=== PATIENT | female | born 1940 | race Caucasian/White ===

== ENCOUNTER 2016-10-30 10:30 | Inpatient (IN) | payer MEDICARE, OTHER ==
[~2016-10-30] VITALS: Ht 167.6 cm; Wt 78.5 kg
[2016-11-11] MEDS ORDERED: PROP150T PO (09:31)
[2016-11-11] MEDS ORDERED: NEXI40CA PO (09:31)
[2016-11-11] MEDS ORDERED: HUMALOG SQ (09:31)
[2016-11-11] MEDS ORDERED: LIPI40TA PO (09:31)
[2016-11-11] MEDS ORDERED: AMBI10TA PO (09:31)
[2016-11-11] MEDS ORDERED: GLIM4TAB PO (09:31)
[2016-11-11] MEDS ORDERED: PRED5TAB PO (09:31)
[2016-11-11] MEDS ORDERED: LINA2.5T5 PO (09:31)
[2016-11-11] MEDS ORDERED: LEVO25TA4 PO (09:31)
[2016-11-20] MEDS ORDERED: LACTATED RINGER'S 1000 ML IV PRN (07:15)
[2016-11-20] MEDS ORDERED: CHLORHEXIDINE GLUCONATE 2 % 1 PACK (2 CLOTHS) TOPICAL PRN (07:15)
[2016-11-20] MEDS ORDERED: METOPROLOL TARTRATE 25 MG TAB PO PRN (07:15)
[2016-11-20] MEDS ORDERED: INSULIN HUMAN REGULAR 1,000 UNITS/10 ML VIAL SQ PRN (07:15)
[2016-11-20] MEDS ORDERED: SODIUM CHLORID 0.9% 500 ML IV PRN (07:15)
[2016-11-20] MEDS ORDERED: TRANEXAMIC ACID IV SCH ×2 (07:30→13:00)
[2016-11-20] MEDS ORDERED: SODIUM CHLORIDE 0.9% IV SCH ×2 (07:30→13:00)
[2016-11-20] MEDS ORDERED: ROPIVACAINE PERI-ARTICULAR INJECTION. P-ARTICULR SCH ×5 (07:30)
[2016-11-20] MEDS ORDERED: DEXAMETHASONE SOD PHOS 20 MG/5 ML VIAL IV SCH (07:30)
[2016-11-20] MEDS ORDERED: VANCOMYCIN 1000 MG/NS 250 ML (for <70 kg) IV SCH ×2 (07:30)
[2016-11-20] MEDS ORDERED: BUPIVACAINE LIPOSOME PF 1.3% 20 ML VIAL ONE (08:00)
[2016-11-20] MEDS ORDERED: POTA10CA PO (08:42)
[2016-11-20] MEDS ORDERED: SPIR25TA PO (08:42)
[2016-11-20 08:44] VITALS: BP 128/77; PULSE 69; RESP 20; TEMP 98; O2SAT 95
[2016-11-20] MEDS ORDERED: CLINDAMYCIN INJ 900 MG in SODIUM CHLORIDE 0.9% INJ 100 ML IV SCH (09:00)
[2016-11-20] MEDS ORDERED: CLINDAMYCIN PHOS 900 MG/6 ML VIAL ONE (09:05)
[2016-11-20] MEDS ORDERED: SODIUM CHLORIDE 0.9% INJ 100 ML ONE (09:07)
[2016-11-20] MEDS ORDERED: fentaNYL CITRATE 250 MCG/5 ML AMP ONE (09:14)
[2016-11-20] MEDS ORDERED: GENTAMICIN SULFATE 80 MG/2 ML VIAL ONE (09:32)
[2016-11-20] MEDS ORDERED: MIDAZOLAM HCL 2 MG/2 ML VIAL ONE (09:41)
[2016-11-20] MEDS ORDERED: FAMOTIDINE 20 MG/2 ML VIAL ONE (09:41)
[2016-11-20] MEDS ORDERED: ACETAMINOPHEN 1000 MG/100 ML VIAL IV ONE (10:28)
[2016-11-20] MEDS ORDERED: Post-op Orders (for Pharmacy) MISC XX ONE (12:00)
[2016-11-20] MEDS ORDERED: NALOXONE HCL 0.4 MG/ML AMP IV PRN (12:00)
[2016-11-20] MEDS ORDERED: ePHEDrine/NS 25 MG/5 ML SYR IV ONE (12:00)
[2016-11-20] MEDS ORDERED: LACTATED RINGER'S 1000 ML INJ 1,000 ML IV ONE (12:00)
[2016-11-20] MEDS ORDERED: BISACODYL 10 MG SUPP RECTAL PRN (12:00)
[2016-11-20] MEDS ORDERED: SODIUM CHLORIDE 0.9% FLUSH 5 ML FLUSH IVF PRN (12:00)
[2016-11-20] MEDS ORDERED: PROPOFOL 200 MG/20 ML AMP IV ONE (12:00)
[2016-11-20] MEDS ORDERED: MAGNESIUM HYDROXIDE SUSP 30 ML CUP PO PRN (12:00)
[2016-11-20] MEDS ORDERED: PHENYLEPH/NS 1000 MCG/10 ML SYR IV ONE (12:00)
[2016-11-20] MEDS ORDERED: ALUMINUM/MAGNESIUM/SIMETH 30 ML CUP PO PRN (12:00)
[2016-11-20] MEDS ORDERED: ONDANSETRON HCL 4 MG/2 ML VIAL IV PUSH ONE (12:00)
--- NOTE | 2016-11-20 12:03 | PD.OP ---
cc: Shaun Rodriguez MD Operative Report Date of Surgery: November 20, 2016 Preoperative Diagnosis: Right knee severe osteoarthritis Postoperative Diagnosis: Same Procedure: Right total knee arthroplasty Anesthesia: Gen. and adductor canal block Surgeon: Shaun Rodriguez Plier Worker(s): RENA Kulkarni The surgical procedure was assisted by my Advanced Registered Nurse Practitioner. My LEAD NETWORK ENGINEER presence was necessary throughout this case for the manipulation and positioning of the surgical extremity. My LEAD NETWORK ENGINEER was assisting me throughout the duration of this procedure. The skill set of an Advance Registered Nurse Practitioner was medically necessary to complete this procedure. During the surgical case, the surgical scheduler was working at the back table and the Advance Registered Nurse Practitioner was directly assisting me. Operation and Findings: IMPLANTS: DePuy Attune: Patella: size 35. Femur, posterior stabilized size 6. Tibia, rotating platform size 5. Tibial insert, rotating platform, posterior stabilized size 5 mm thickness. ESTIMATED BLOOD LOSS: 100 cc TOURNIQUET TIME: 36 minutes at 250 mmHg pressure. JUSTIFICATION FOR PROCEDURE: The patient has end-stage osteoarthritis to the knee. There is an attached conservative measures pathway form in the chart that describes the nonoperative measures that were undertaken prior to consideration of surgical management. The patient understood the risks and benefits of surgical management. See my office notes for further details PROCEDURE: The patient was brought back to the operative theatre. Adequate anesthesia was obtained. The patient received intravenous vancomycin and clindamycin. The lower extremity was prepped and draped in the usual sterile fashion.The leg was exsanguinated, the tourniquet was raised. A standard anterior incision was performed followed by medial parapatellar arthrotomy was performed. End-stage arthritis was identified of the lateral compartment. Specifically there was a large osteochondral defect encompassing the weightbearing surface of the lateral compartment with significant irregular cartilage edges and deep fissuring down to significant exposed bone. Additionally, there was a very large piece of free floating cartilage within the joint along with a large joint effusion that was noted. Osteotomy of the patella was performed. We drilled holes for the patella. We trialed the patella component. We placed an intramedullary guide into the distal femur. We ultimately resected 14 mm off of the distal femur in 5 degrees of valgus. The remnants of the ACL and PCL were resected. Osteotomy of the proximal tibia was performed, resecting 5 mm off of the medial side. This was done with 3 degrees of posterior slope using an extramedullary guide. The distal end of the guide was placed in the mid aspect of the ankle. The femur was sized, and four chamfer cuts were completed in 3 of external rotation. We then cut the central box in the distal femur to replace the PCL. We resected the remnants of the menisci and removed osteophytes off of the femur and tibia. We then trialed the knee. We punched the tibia for the keel, and then used standard technique to cement in components. Excess cement was removed. We trialed the knee again and the final polyethylene thickness was chosen to provide extension to 0 degrees, and flexion of 140 degrees to gravity. The ligaments were appropriately balanced. Lateral release was necessary to obtain excellent patellofemoral tracking. The tourniquet was released and adequate hemostasis was obtained. An intra- articular injection of a ropivacaine cocktail was injected. The posterior knee was inspected for excess cement, which was removed. The final polyethylene was put into position after thorough irrigation. We then closed deep fascia with a #2 Stratafix followed by skin with 2-0 Vicryl followed by alba. Postop plan is to weight-bear as tolerated. DVT prophylaxis will be performed with SCDs, MARGARITA crandall, early mobilization, and Lovenox followed by aspirin. Shaun Rodriguez MD November 20, 2016 12:03
[2016-11-20] MEDS ORDERED: HYDR-3366 PO (12:05)
[2016-11-20] MEDS ORDERED: ASPI325T PO (12:05)
[2016-11-20] MEDS ORDERED: ENOX40P SQ (12:05)
[2016-11-20] MEDS ORDERED: DO NOT ADM ANY ANTICOAGULANT DRUGS PRN (12:19)
--- NOTE | 2016-11-20 12:21 | HHI.DCPOC ---
Discharge Care Plan Diagnosis: (1) Status post total knee replacement, right (2) Primary localized osteoarthrosis, lower leg Your Health Problems Are: Difficulty with ADL Goals to Promote Your Health * To prevent worsening of your condition and complications * To maintain your health at the optimal level Directions to Meet Your Goals Take your medications as prescribed Follow your dietary instruction Follow activity as directed Keep your appointments as scheduled Take your immunizations and boosters as scheduled If your symptoms worsen call your PCP, if no PCP go to Urgent Care Center or Emergency Room Smoking is Dangerous to Your Health. Avoid second hand smoke Call the 24-hour hour crisis hotline for domestic abuse at Kye Marr November 20, 2016 12:21
--- NOTE | 2016-11-20 12:23 | HHI.FF ---
Face to Face Verification Diagnosis: (1) Primary localized osteoarthrosis, lower leg (2) Status post total knee replacement, right Physical Therapy Gait training, Transfer training, bed to chair Knee: Total knee Right LE Weight Bearing: WB as tolerated Right LE Range of Motion: Active ROM Nursing Nursing: Rafal teaching, Dressing changes Dressing Changes: Daily dressing change I have seen patient Chanell MoellerVon on 11/20/16. My clinical findings support the need for the requested home health care services because: Limited ability to care for self High risk of falls I certify that my clinical findings support that this patient is homebound because: Post-op weakness Unsteady gait/balance Kye Marr November 20, 2016 12:23
[2016-11-20] MEDS ORDERED: WALKER WHEELS/F1 MIS (12:24)
[2016-11-20] MEDS ORDERED: CPMMACHINE (12:24)
[2016-11-20] MEDS ORDERED: COMMODE 3-IN-11 MIS (12:24)
[2016-11-20] MEDS ORDERED: MEPERIDINE HCL 25 MG/ML VIAL ONE (12:26)
[2016-11-20] MEDS ORDERED: *morphine SULFATE 8 MG/ML PERIprocedure ONLY ONE ×2 (12:37→12:49)
--- NOTE | 2016-11-20 12:55 | RADRPT ---
EXAM DATE/TIME: 11/20/2016 12:40 [place] Corrected on: November 20, 2016; [facility] COMPARISON: No previous studies available for comparison. INDICATIONS : Post op total right knee. MEDICAL HISTORY : None. SURGICAL HISTORY : None. ENCOUNTER: Initial ACUITY: 1 day PAIN SCORE: 7/10 LOCATION: Right Knee. FINDINGS: Right total knee arthroplasty is present. Hardware is intact. Alignment is anatomic. Skin alba are present ventrally. CONCLUSION: Satisfactory appearance post right TKA Sebas Luque MD on November 20, 2016 at 12:56 Board Certified Radiologist. This report was verified electronically.
[2016-11-20] MEDS: SODIUM CHLOR 0.9% 1000 ML INJ 1,000 ML IV SCH ×2 (13:00→23:07)
[2016-11-20] MEDS ORDERED: NON-FORMULARY DRUG (Insulin Lispro (Human) Inj (Humalog Inj) 0 UNITS) SQ SCH (13:00)
[2016-11-20] MEDS: SPIRONOLACTONE 25 MG TAB PO SCH ×2 (13:00→18:43)
[2016-11-20 13:47] LABS: BICARBONATE 25.9 MEQ/L (21.0-32.0); POTASSIUM 4.2 MEQ/L (3.5-5.1)
[2016-11-20 14:20] VITALS: BP 117/54; PULSE 70; RESP 18; TEMP 96.3; O2SAT 94
[2016-11-20] MEDS: MORPHINE SULFATE 4 MG/ML INJ IV PUSH PRN ×2 (14:33→20:50)
[2016-11-20] MEDS: PROPAFENONE HCL 150 MG TAB PO SCH ×2 (14:36→22:18)
--- NOTE | 2016-11-20 14:41 | PD.CONS ---
[facility] Service [facility] Hospitalists Consult Requested By Dr. Rodriguez Reason for Consult Medical management Primary Care Physician Daphney Dean M.D. Diagnoses: History of Present Illness This is a pleasant 76-year-old female who was admitted for elective surgery. Patient with significant past medical history paroxysmal A. fib, hypertension, sleep apnea, hypothyroid, type 2 diabetes. Patient has history of arthritis, she underwent right total knee arthroplasty per Dr. Rodriguez. She tolerated procedure well. Patient complaining of right thigh cramping, she is in the process of getting medicated. Indicates she received cardiac clearance from Dr. Morrow last week, had an EKG, she was in sinus rhythm. She denies any recent chest pain, no shortness of breath. Hospital services are requested for medical management. ([facility] [place]) Review of Systems Constitutional: DENIES: Diaphoretic episodes, Fatigue, Fever, Weight gain, Weight loss, Chills, Dizziness, Change in appetite, Night Sweats Endocrine: DENIES: Abnorml menstrual pattern, Heat/cold intolerance, Polydipsia , Polyuria, Polyphagia Eyes: DENIES: Blurred vision, Diplopia, Eye inflammation, Eye pain, Vision loss , Photosensitivity, Double Vision Ears, nose, mouth, throat: DENIES: Tinnitus, Hearing loss, Vertigo, Nasal discharge, Oral lesions, Throat pain, Hoarseness, Ear Pain, Running Nose, Epistaxis, Sinus Pain, Toothache, Odynophagia Respiratory: DENIES: Apneas, Cough, Snoring, Wheezing, Hemoptysis, Sputum production, Shortness of breath Cardiovascular: DENIES: Chest pain, Palpitations, Syncope, Dyspnea on Exertion , PND, Lower Extremity Edema, Orthopnea, Claudication Gastrointestinal: DENIES: Abdominal pain, Black stools, Bloody stools, Constipation, Diarrhea, Nausea, Vomiting, Difficulty Swallowing, Anorexia Genitourinary: DENIES: Abnormal vaginal bleeding, Dysmenorrhea, Dyspareunia, Sexual dysfunction, Urinary frequency, Urinary incontinence, Urgency, Hematuria , Dysuria, Nocturia, Vaginal discharge Musculoskeletal: COMPLAINS OF: Joint pain, DENIES: Muscle aches, Stiffness, Joint Swelling, Back pain, Neck pain Integumentary: DENIES: Abnormal pigmentation, Pruritus, Rash, Nail changes, Breast masses, Breast skin changes, Nipple discharge Hematologic/lymphatic: DENIES: Bruising, Lymphadenopathy Immunologic/allergic: DENIES: Eczema, Urticaria Neurologic: DENIES: Abnormal gait, Headache, Localized weakness, Paresthesias, Seizures, Speech Problems, Tremor, Poor Balance Psychiatric: DENIES: Anxiety, Confusion, Mood changes, Depression, Hallucinations, Agitation, Suicidal Ideation, Homicidal Ideation, Delusions ( [place]) Past Family Social History Past Medical History Hypertension Hypothyroid Hyperlipidemia Type 2 diabetes CAD GERD Degenerative disc disease Paroxysmal A. fib Anxiety Sleep apnea, no longer uses CPAP. Follows up with Dr. Billingsley as outpatient. Past Surgical History Appendectomy Exploratory lap with lysis of adhesions 1989 Repeat elap with lysis of adhesions 2012 EGD and colonoscopy Cardiac catheterization Hysterectomy Cholecystectomy Reported Medications Reported Meds & Active Scripts Active Aspirin 325 Mg Tab 325 Mg PO DAILY Start Aspirin after Lovenox is completed. Lovenox Inj (Enoxaparin Sodium) 40 Mg/0.4 Ml Syr 40 Mg SQ DAILY Start Aspirin after Lovenox is completed. Hillister (Hydrocodone-Acetaminophen) 10-325 Mg Tab 1-2 Tab PO Q4H PRN Reported Potassium Chloride ER (Potassium Chloride) 10 Meq Cap 10 Meq PO BID Spironolactone 25 Mg Tab 25 Mg PO TID Glimepiride 4 Mg Tab 4 Mg PO BIDAC Lipitor (Atorvastatin Calcium) 40 Mg Tab 40 Mg PO HS Nexium (Esomeprazole DR) 40 Mg Capdr 40 Mg PO DAILY Ambien (Zolpidem Tartrate) 10 Mg Tab 10 Mg PO HS PRN Levothyroxine (Levothyroxine Sodium) 25 Mcg Tab 25 Mcg PO DAILY Prednisone 5 Mg Tab 5 Mg PO DAILY Propafenone (Propafenone HCl) 150 Mg Tab 150 Mg PO Q8HR Jentadueto (Linagliptin-Metformin) 2.5-1,000 Mg Tab 1 Tab PO BID Humalog Inj (Insulin Human Lispro) 1,000 Unit/10 Ml Vial 1-9 Units SQ QID Max dose at bedtime:( )units; sugars< 70,(0)units; sugars 150-199,(1)unit; sugars 200-249,(3)units; sugars 250-299,(5)units; sugars 300-349,(7)units; sugars more than 349,(9)units. ([place]ri [place]) Allergies: Coded Allergies: Ants (Verified Allergy, Severe, Anaphylaxis, 11/20/16) Benadryl (Verified Allergy, Severe, Anaphylaxis, 11/20/16) Dextrose (Verified Allergy, Severe, Anaphylaxis, 11/20/16) Iodine (Verified Allergy, Mild, Nausea/Vomiting, 11/20/16) STATES SHE RECENTLY HAD IT AND SHE WAS FINE Penicillin (Verified Allergy, Mild, Hives, 11/20/16) Uncoded Allergies: DIOXILLIN (Allergy, Mild, Hives, 10/01/06) ORAL PAIN MEDS (Allergy, Mild, Hives, 10/01/06) SOME ANITBIOTICS (Allergy, Mild, 10/01/06) Active Ordered Medications Inpatient Medications Acetaminophen/ Hydrocodone Bitart 2 tab 2 tab Q6H PRN PO PAIN SCALE 5 TO 10; Start 11/20/16 at 12:00 Acetaminophen/ Hydrocodone Bitart (Hillister 10-325 Mg) 1 tab Q4H PRN PO PAIN LESS THAN 5 ON SCALE; Start 11/20/16 at 12:00 Al Hydrox/Mg Hydrox/Simethicone (Mag-Al Plus Susp Liq) 30 ml Q6H PRN PO INDIGESTION; Start 11/20/16 at 12:00 Atorvastatin Calcium (Lipitor) 40 mg HS PO ; Start 11/20/16 at 21:00 Bisacodyl (Dulcolax Supp) 10 mg DAILY PRN RECTAL CONSTIPATION; Start 11/20/16 at 12:00 Chlorhexidine Gluconate (Chlorhexidine 2% Cloth) 3 pack CABLE ARMORER PRN TOPICAL SEE LABEL COMMENTS; Start 11/20/16 at 07:15; Stop 11/23/16 at 07:14 Clindamycin Phosphate/Sodium Chloride (Cleocin Inj/NS Inj) 106 ml @ 212 mls/hr Q8H IV ; Start 11/20/16 at 17:00; Stop 11/21/16 at 09:29 Dexamethasone Sodium Phosphate (Decadron Inj) 10 mg ONCE ONCE IV ; Start at 13:00; Stop 11/21/16 at 13:01 Dextrose (D50w (Vial) Inj) 25 ml UNSCH PRN IV PUSH HYPOGLYCEMIA-SEE COMMENTS; Start 11/20/16 at 14:45; Status UNV Docusate Sodium (Colace) 100 mg BID PO ; Start 11/21/16 at 21:00 Enoxaparin Sodium (Lovenox Inj) 40 mg Q24H SQ ; Start 11/21/16 at 11:00; Stop at 11:01 Glimepiride (Amaryl) 4 mg BIDAC PO ; Start 11/20/16 at 16:00 Glucagon (Glucagon Inj) 1 mg UNSCH PRN OTHER HYPOGLYCEMIA-SEE COMMENTS; Start 11/20/16 at 14:45; Status UNV Insulin Aspart (NovoLOG SUPPLEMENTAL SCALE) 1 ACHS SLIDING SCALE SQ ; Start 11/20/16 at 16:00; Status UNV Insulin Human Regular See Protocol Table ... CABLE ARMORER PRN SQ SEE PROTOCOL TABLE ; Start 11/20/16 at 07:15; Stop 11/23/16 at 07:14 IV Flush (NS Flush) 2 ml UNSCH PRN IVF FLUSH AFTER USING IV ACCESS; Start at 12:00 IV Flush 2 ml 2 ml BID IVF ; Start 11/20/16 at 21:00 Lactated Ringer's 1,000 ml @ 30 mls/hr Q24H PRN IV SEE LABEL COMMENTS Last administered on 11/20/16 09:00; Start 11/20/16 at 07:15; Stop 11/23/16 at 07:14 Levothyroxine Sodium (Synthroid) 25 mcg DAILY@06 PO ; Start 11/21/16 at 06:00 Magnesium Hydroxide (Milk Of Magnesia Liq) 30 ml DAILY PRN PO CONSTIPATION; Start 11/20/16 at 12:00 Metoprolol Tartrate (Lopressor) 25 mg CABLE ARMORER PRN PO SEE LABEL COMMENTS; Start 11/20/16 at 07:15; Stop 11/23/16 at 07:14 Miscellaneous Information ALL NURSING DEPARTME... UNSCH PRN .XX SEE LABEL COMMENTS; Start 11/20/16 at 12:19; Stop 11/21/16 at 12:18 Miscellaneous Information (Post-op Orders (for Pharmacy)) STAT ONCE XX ; Start 11/20/16 at 12:00; Stop 11/20/16 at 12:59; Status DC Morphine Sulfate (Morphine Inj) 2 mg Q3H PRN IV PUSH pain greater than 5 Last administered on 11/20/16 14:33; Start 11/20/16 at 12:00 Multivitamins/ Minerals Therapeutic (Theragran M Tab) 1 tab BID PO ; Start at 21:00; Stop 01/20/17 at 20:59 Naloxone HCl (Narcan Inj) 0.4 mg UNSCH PRN IV RESPIRATORY RATE LESS THAN 10; Start 11/20/16 at 12:00 Non-Formulary Medication QID SQ BSM; Start 11/20/16 at 13:00; Status UNV Ondansetron HCl (Zofran Inj) 4 mg Q6H PRN IVP NAUSEA OR VOMITING; Start at 12:00 Pantoprazole Sodium (Protonix) 40 mg DAILY PO ; Start 11/21/16 at 09:00 Patient Own Medication PT OWN MED: JENTADU... BID PO ; Start 11/20/16 at 21:00; Status Future Hold Potassium Chloride (KCl) 10 meq BID PO ; Start 11/20/16 at 21:00 Prednisone (Deltasone) 5 mg DAILY PO ; Start 11/21/16 at 09:00 Propafenone HCl (Rythmol) 150 mg Q8HR PO Last administered on 11/20/16 14:36; Start 11/20/16 at 14:00 Ropivacaine/ Ketorolac Tromethamine/ Epinephrine HCl/ Clonidine/Sodium Chloride (Naropin 0.5% Pf Inj/Toradol Inj/ Adrenalin (1:1000) Inj/ Duraclon Inj/NS Inj) 100 ml @ 200 mls/hr ONCE P-ARTICULR ; Start 11/20/16 at 07:30; Stop 11/21/16 at 07:29 Sodium Chloride (NS 1000 ml Inj) 1,000 ml @ 100 mls/hr Q10H IV Last administered on 11/20/16 13:00; Start 11/20/16 at 13:00 Sodium Chloride (NS 500 ml Inj) 500 ml @ 30 mls/hr [id number] PRN IV SEE LABEL COMMENTS; Start 11/20/16 at 07:15; Stop 11/23/16 at 07:14 Spironolactone (Aldactone) 25 mg TID PO ; Start 11/20/16 at 13:00 Tranexamic Acid 785 mg/Sodium Chloride 107.85 ml @ 200 mls/ hr ONCE IV Last administered on 11/20/16 10:15; Start 11/20/16 at 07:30; Stop 11/21/16 at 07:29 Tranexamic Acid/ Sodium Chloride (Cyklokapron Inj/ NS Inj) 107.85 ml @ 200 mls / hr UNSCH IV Last administered on 11/20/16 13:51; Start 11/20/16 at 13:00; Stop 11/20/16 at 19:00 Vancomycin HCl 1000 mg/Sodium Chloride 250 ml @ 250 mls/hr CABLE ARMORER IV Last administered on 11/20/16 09:15; Start 11/20/16 at 07:30; Stop 11/23/16 at 07:29 Zolpidem Tartrate (Ambien) 10 mg HS PRN PO INSOMNIA; Start 11/20/16 at 12:00 Family History Positive for CAD and diabetes Social History Patient lives alone, no alcohol, tobacco abuse, no substance abuse. ([place]) Physical Exam Vital Signs Vital Signs Date Time Temp Pulse Resp B/P Pulse Ox O2 Delivery O2 Flow Rate FiO2 11/20/16 14:20 96.3 70 18 117/54 94 11/20/16 13:45 97.6 64 16 106/57 95 Nasal Cannula 2 11/20/16 13:30 65 16 105/57 95 Nasal Cannula 2 11/20/16 13:15 65 16 101/58 94 Nasal Cannula 2 11/20/16 13:00 64 20 97/55 98 Nasal Cannula 3 11/20/16 12:45 64 26 106/58 95 Nasal Cannula 3 11/20/16 12:30 68 28 119/69 97 Nasal Cannula 3 11/20/16 12:21 97.6 71 19 118/67 96 Nasal Cannula 3 11/20/16 08:44 98.0 69 20 128/77 95 Physical Exam GENERAL: This is a well-nourished, well-developed patient, in no apparent distress. SKIN: No rashes, ecchymoses or lesions. Cool and dry. HEAD: Atraumatic. Normocephalic. No temporal or scalp tenderness. EYES: Pupils equal round and reactive. Extraocular motions intact. No scleral icterus. No injection or drainage. ENT: Nose without bleeding, purulent drainage or septal hematoma. Throat without erythema, tonsillar hypertrophy or exudate. Uvula midline. Airway patent. NECK: Trachea midline. No JVD or lymphadenopathy. Supple, nontender, no meningeal signs. CARDIOVASCULAR: Regular rate and rhythm without murmurs, gallops, or rubs. RESPIRATORY: Clear to auscultation. Breath sounds equal bilaterally. No wheezes , rales, or rhonchi. GASTROINTESTINAL: Abdomen soft, non-tender, nondistended. No hepato-splenomegaly , or palpable masses. No guarding. MUSCULOSKELETAL: Right leg in splint. Surgical site intact. Able to dorsiflex right foot, intact sensation to the right foot, bilaterally pedal pulses 2+. NEUROLOGICAL: Grossly intact Laboratory Laboratory Tests Test 11/20/16 11/20/16 09:32 13:04 Blood Type O POSITIVE Antibody Screen NEGATIVE Blood Bank Comment Sodium Level 137 Potassium Level 4.2 Chloride Level 101 Carbon Dioxide Level 25.9 Anion Gap 10 Blood Urea Nitrogen 18 Creatinine 0.92 Estimat Glomerular Filtration 60 Rate Random Glucose 300 Calcium Level 8.2 ([place]ri [place]) Result Diagram: 11/20/16 1304 Imaging Last Impressions Knee X-Ray 11/20/16 1152 Signed Impressions: Service Date/Time: Sunday, November 20, 2016 12:40 - CONCLUSION: Satisfactory appearance post right TKA Sebas Luque MD ([facility] [place]) A/P Diagnosis: (1) Status post total knee replacement, right (2) Paroxysmal a-fib (3) CAD (coronary artery disease) (4) HTN (hypertension) (5) Sleep apnea (6) Diabetes 1.5, managed as type 2 Assessment and Plan Thank you for this consultation, we will assist with medical management 76-year-old female with history of osteomyelitis, status post right total knee arthroplasty -Continue with postoperative orthopedic care Continue with pain management Physical therapy Wound care Bowel regimen Lovenox for DVT prophylaxis History of paroxysmal A. fib, currently sinus rhythm Continuous cardiac telemetry -Continue with Rythmol CAD, stable Continue with home medications Sleep apnea, patient no longer uses CPAP due to mask not fitting. Has been stable, follows up with sleep specialist -Monitor Type 2 diabetes -Continue with by mouth hypoglycemic, continue Amaryl Accu-Cheks before meals and at bedtime with insulin therapy Hypertension, stable Continue with home medications Home medications reviewed, already initiated Continue with Lovenox for DVT prophylaxis Continue with Protonix for GI prophylaxis Repeat CBC and BMP in the morning Plan of care has been discussed with the patient, attending and registered nurse. Further management of the patient will be dependent on the hospital course This patient was seen by myself and Dr. Witt, this consultation is written on his behalf ([facility]ri [place]) Assessment and Plan pt is seen & Examined d/w PT d/w Carri malave w above cont current tx will f/u (Jase Witt MD) Problem Qualifiers (1) CAD (coronary artery disease): Qualified Code: I25.10 - Coronary artery disease involving [place] coronary artery of [place] heart without angina pectoris (2) HTN (hypertension): Qualified Code: I10 - Essential hypertension (3) Sleep apnea: Qualified Code: G47.30 - Sleep apnea, unspecified type [facility] [place] November 20, 2016 14:41 Jase Witt MD November 20, 2016 17:00
[2016-11-20] MEDS ORDERED: DEXTROSE 50% IN WATER 50 ML VIAL(D50) IV PUSH PRN ×2 (14:45→17:15)
[2016-11-20] MEDS ORDERED: GLUCAGON 1 MG/ML VIAL OTHER PRN ×2 (14:45→17:15)
[2016-11-20] MEDS ORDERED: INSULIN ASPART SUPPLEMENTAL SCALE SQ SCH (16:00)
[2016-11-20] MEDS: ONDANSETRON HCL 4 MG/2 ML VIAL IVP PRN (16:38)
[2016-11-20] MEDS: GLIMEPIRIDE 4 MG TAB PO SCH (16:38)
[2016-11-20] MEDS ORDERED: INSULIN ASPART 1,000 UNITS/10 ML VIAL SQ ONE (17:45)
[2016-11-20] MEDS: ALPRAZolam 0.25 MG TAB PO PRN (18:43)
[2016-11-20] MEDS: CLINDAMYCIN INJ 900 MG in SODIUM CHLORIDE 0.9% INJ 100 ML IV SCH (18:55)
[2016-11-20 20:07] VITALS: O2SAT 96
[2016-11-20 20:20] VITALS: BP 102/61; PULSE 64; RESP 16; TEMP 96.6; O2SAT 92
[2016-11-20] MEDS: POTASSIUM CHLORIDE 10 MEQ CAP PO SCH (20:48)
[2016-11-20] MEDS: SODIUM CHLORIDE 0.9% FLUSH 5 ML FLUSH IVF SCH (20:49)
[2016-11-20] MEDS: INSULIN ASPART SUPPLEMENTAL SCALE SQ SCH (20:49)
[2016-11-20] MEDS: ATORVASTATIN 40 MG TAB PO SCH (20:49)
[2016-11-20] MEDS ORDERED: LINAGLIPTIN PO SCH (21:00)
[2016-11-20] MEDS ORDERED: METFORMIN PO SCH (21:00)
[2016-11-20] MEDS: ZOLPIDEM TARTRATE 10 MG TAB PO PRN (23:22)
[2016-11-21 00:05] VITALS: BP 100/57; PULSE 65; RESP 16; TEMP 97.8; O2SAT 93
[2016-11-21] MEDS: CLINDAMYCIN INJ 900 MG in SODIUM CHLORIDE 0.9% INJ 100 ML IV SCH ×2 (01:04→08:50)
[2016-11-21 04:05] VITALS: BP 112/62; PULSE 66; RESP 16; TEMP 96.8; O2SAT 93
[2016-11-21] MEDS: ACETAMINOPHEN/HYDROcodone 325 MG/10 MG TAB PO PRN ×3 (04:14→21:30)
[2016-11-21 06:47] LABS: HEMATOCRIT 26.7 % (35.0-46.0); MEAN CELL VOLUME 66.3 FL (80.0-100.0); MEAN CORPUSCULAR HEMOGLOBIN 19.9 PG (27.0-34.0); PLATELET COUNT 301 TH/MM3 (150-450); RED BLOOD COUNT 4.03 MIL/MM3 (4.00-5.30); RED CELL DISTRIBUTION WIDTH 18.5 % (11.6-17.2)
[2016-11-21 06:57] LABS: REVIEW FLAG FINAL
[2016-11-21 07:06] LABS: BICARBONATE 26.7 MEQ/L (21.0-32.0); POTASSIUM 4.3 MEQ/L (3.5-5.1)
[2016-11-21] MEDS: PROPAFENONE HCL 150 MG TAB PO SCH ×3 (07:14→21:29)
[2016-11-21] MEDS: GLIMEPIRIDE 4 MG TAB PO SCH ×2 (07:14→18:06)
[2016-11-21] MEDS: LEVOTHYROXINE SODIUM 25 MCG TAB PO SCH (07:14)
[2016-11-21] MEDS: INSULIN ASPART SUPPLEMENTAL SCALE SQ SCH ×4 (07:15→21:28)
[2016-11-21 08:00] VITALS: BP 101/60; PULSE 66; RESP 16; TEMP 96.4; O2SAT 92
[2016-11-21] MEDS: ONDANSETRON HCL 4 MG/2 ML VIAL IVP PRN (08:51)
[2016-11-21] MEDS: SODIUM CHLORIDE 0.9% FLUSH 5 ML FLUSH IVF SCH ×2 (08:51→21:29)
[2016-11-21] MEDS: predniSONE 5 MG TAB PO SCH (10:46)
[2016-11-21] MEDS: POTASSIUM CHLORIDE 10 MEQ CAP PO SCH ×2 (10:46→21:28)
[2016-11-21] MEDS: SPIRONOLACTONE 25 MG TAB PO SCH ×3 (10:46→20:15)
[2016-11-21] MEDS: PANTOPRAZOLE SOD 40 MG DELAYED RELEASE TAB PO SCH (10:47)
[2016-11-21] MEDS: ALPRAZolam 0.25 MG TAB PO PRN (10:47)
[2016-11-21] MEDS: SODIUM CHLOR 0.9% 1000 ML INJ 1,000 ML IV SCH ×2 (10:48→19:00)
[2016-11-21] MEDS ORDERED: DILT60TA PO (11:36)
--- NOTE | 2016-11-21 11:57 | HHI.PR ---
Subjective Subjective Remarks right knee pain no cp no sob no bm yet no palpitatin no fever sitting up in chair Review of Systems Constitutional Constitutional Remarks 12 point ROS completed, negative except as noted above Vitals/Results Intake & Output 11/20/16 11/20/16 11/21/16 15:00 23:00 07:00 Intake Total 1250 ml 240 ml 120 ml Output Total 1050 ml 600 ml 375 ml Balance 200 ml -360 ml -255 ml Intake Oral 240 ml 120 ml IV Total 150 ml Other 1100 ml Output Urine Total 850 ml 600 ml 375 ml Estimated Blood Loss 200 ml # Bowel Movements 0 0 Vital Signs Vital Signs Date Time Temp Pulse Resp B/P Pulse Ox O2 Delivery O2 Flow Rate FiO2 11/21/16 08:00 96.4 66 16 101/60 92 11/21/16 04:05 96.8 66 16 112/62 93 11/21/16 00:05 97.8 65 16 100/57 93 11/20/16 20:20 96.6 64 16 102/61 92 11/20/16 20:07 96 Nasal Cannula 1.00 11/20/16 14:20 96.3 70 18 117/54 94 11/20/16 13:45 97.6 64 16 106/57 95 Nasal Cannula 2 11/20/16 13:30 65 16 105/57 95 Nasal Cannula 2 11/20/16 13:15 65 16 101/58 94 Nasal Cannula 2 11/20/16 13:00 64 20 97/55 98 Nasal Cannula 3 11/20/16 12:45 64 26 106/58 95 Nasal Cannula 3 11/20/16 12:30 68 28 119/69 97 Nasal Cannula 3 11/20/16 12:21 97.6 71 19 118/67 96 Nasal Cannula 3 CBC/BMP: 11/21/16 0535 11/21/16 0535 Lab Results Laboratory Tests Test 11/20/16 11/21/16 13:04 05:35 Sodium Level 137 MEQ/L 137 MEQ/L Potassium Level 4.2 MEQ/L 4.3 MEQ/L Chloride Level 101 MEQ/L 103 MEQ/L Carbon Dioxide Level 25.9 MEQ/L 26.7 MEQ/L Anion Gap 10 MEQ/L 7 MEQ/L Blood Urea Nitrogen 18 MG/DL 19 MG/DL Creatinine 0.92 MG/DL 0.74 MG/DL Estimat Glomerular Filtration 60 ML/MIN 77 ML/MIN Rate Random Glucose 300 MG/DL 183 MG/DL Calcium Level 8.2 MG/DL 7.8 MG/DL White Blood Count 12.0 TH/MM3 Red Blood Count 4.03 MIL/MM3 Hemoglobin 8.0 GM/DL Hematocrit 26.7 % Mean Corpuscular Volume 66.3 FL Mean Corpuscular Hemoglobin 19.9 PG Mean Corpuscular Hemoglobin 30.0 % Concent Red Cell Distribution Width 18.5 % Platelet Count 301 TH/MM3 Mean Platelet Volume 8.1 FL Physical Exam General General Appearance: Well Developed, Well Nourished, No Acute Distress, Comfortable Eyes Eye Exam: Pupils Equal, Pupils Reactive Ears & Nose Ears & Nose Exam: Nasal Mucosa An[place] Throat Throat Exam: Oral Mucosa An[place] & Moist Neck Neck Exam: Neck Supple, Trachea Midline Pulmonary Resp Exam: Clear Bilaterally, No Distress Cardiology CV Exam: Regular, Normal Sinus Rhythm, Good Perfusion Gastrointestinal/Abdomen GI Exam: Soft, Non-Tender, Bowel Sounds Present, Non-Distended Musculoskeletal MS Remarks Right knee dressing D/I Integumentary Skin Exam: Warm, Dry Extremeties Extremities Exam: No Edema, Pedal Pulses Palpable Neurologic Neuro Exam: Alert, Awake, Oriented, Speech Clear, Clinic Physician Equal VTE Prophylaxis VTE Prophylaxis Meds: Lovenox PUD Prophylasis PUD Prophylaxis: Protonix Assessment/Plan Problem List: (1) Status post total knee replacement, 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 fib, currently sinus rhythm. Stable Continuous cardiac telemetry -Continue with Rythmol, resume Cardizem CAD, stable Continue with home medications Sleep apnea, patient no longer uses CPAP due to mask not fitting. Has been stable, follows up with sleep specialist -Monitor Type 2 diabetes, uncontrolled, on Prednisone -Continue with by mouth hypoglycemic, continue Amaryl Accu-Cheks before meals and at bedtime with insulin therapy Hypertension, stable Continue with home medications Continue with Lovenox for DVT prophylaxis Continue with Protonix for GI prophylaxis Labs in am D/W RN D/W Dr. Witt D/W pt. This patient was seen by myself and Dr. Witt, this note is written on his behalf Problem Qualifiers (1) Sleep apnea: Qualified Code: G47.30 - Sleep apnea, unspecified type (2) HTN (hypertension): Qualified Code: I10 - Essential hypertension (3) CAD (coronary artery disease): Qualified Code: I25.10 - Coronary artery disease involving [place] coronary artery of [place] heart without angina pectoris (4) Anemia: Carri [place] [facility] November 21, 2016 11:57
[2016-11-21 12:00] VITALS: BP 113/56; PULSE 65; RESP 16; TEMP 97.4; O2SAT 94
[2016-11-21] MEDS ORDERED: DILTIAZEM HCL 60 MG TAB PO PRN (12:00)
[2016-11-21] MEDS: ENOXAPARIN SODIUM 40 MG/0.4 ML SYRINGE SQ SCH (12:10)
--- NOTE | 2016-11-21 12:55 | PD.ORT.PN ---
Subjective Post Op Day #: 1 Subjective Remarks The patient is OOB in chair with c/o thigh pain. Patient denies any knee pain. Patient wants to be back in bed to rest. Objective Vitals Vital Signs Date Time Temp Pulse Resp B/P Pulse Ox O2 Delivery O2 Flow Rate FiO2 11/21/16 08:00 96.4 66 16 101/60 92 11/21/16 04:05 96.8 66 16 112/62 93 11/21/16 00:05 97.8 65 16 100/57 93 11/20/16 20:20 96.6 64 16 102/61 92 11/20/16 20:07 96 Nasal Cannula 1.00 11/20/16 14:20 96.3 70 18 117/54 94 11/20/16 13:45 97.6 64 16 106/57 95 Nasal Cannula 2 11/20/16 13:30 65 16 105/57 95 Nasal Cannula 2 11/20/16 13:15 65 16 101/58 94 Nasal Cannula 2 11/20/16 13:00 64 20 97/55 98 Nasal Cannula 3 11/20/16 12:45 64 26 106/58 95 Nasal Cannula 3 I/O 11/20/16 11/20/16 11/20/16 11/21/16 11/21/16 11/21/16 07:00 15:00 23:00 07:00 15:00 23:00 Intake Total 1250 ml 240 ml 120 ml Output Total 1050 ml 600 ml 375 ml Balance 200 ml -360 ml -255 ml Intake Oral 240 ml 120 ml IV Total 150 ml Other 1100 ml Output Urine Total 850 ml 600 ml 375 ml Estimated Blood Loss 200 ml # Bowel Movements 0 0 Result Diagram: 11/21/16 0535 11/21/16 0535 Procedures Right TKA Objective Remarks The patient's dressing is C/D/I. EHL/TA/G intact. 2+ pedal pulse. Minimal swelling. Calf is soft and nontender. + SILT. Assessment & Plan Ortho Post Op Day #: 1 Problem List: Assessment and Plan POD #1: Right TKA 1. WBAT RLE 2. Lovenox for DVT prophylaxis 3. Ice to the right knee PRN 4. Anticipatory discharge to SNF on Friday. Kye Marr November 21, 2016 12:55
[2016-11-21] MEDS ORDERED: DEXAMETHASONE SOD PHOS 20 MG/5 ML VIAL IV ONE (13:00)
[2016-11-21 16:00] VITALS: BP 122/58; PULSE 67; RESP 16; TEMP 97.3; O2SAT 93
[2016-11-21] MEDS: DILTIAZEM HCL 90 MG TAB PO SCH (16:11)
[2016-11-21 20:15] VITALS: BP 152/68; PULSE 68; RESP 17; TEMP 97; O2SAT 95
[2016-11-21] MEDS: MULTIVITAMINS/MINERALS THERAPEUTIC TAB PO SCH (21:28)
[2016-11-21] MEDS: DOCUSATE SODIUM 100 MG CAP PO SCH (21:28)
[2016-11-21] MEDS: ATORVASTATIN 40 MG TAB PO SCH (21:28)
[2016-11-21] MEDS: ZOLPIDEM TARTRATE 10 MG TAB PO PRN (22:14)
[2016-11-22] VITALS (9 sets, daily range): BP systolic 116–148; BP diastolic 56–73; PULSE 60–67; RESP 17–18; TEMP 96.6–98.2; O2SAT 92–95
[2016-11-22] MEDS: ACETAMINOPHEN/HYDROcodone 325 MG/10 MG TAB PO PRN ×4 (01:31→21:18)
[2016-11-22] MEDS: SODIUM CHLOR 0.9% 1000 ML INJ 1,000 ML IV SCH ×3 (05:00→22:40)
[2016-11-22] MEDS: PROPAFENONE HCL 150 MG TAB PO SCH ×3 (05:54→21:19)
[2016-11-22] MEDS: LEVOTHYROXINE SODIUM 25 MCG TAB PO SCH (05:54)
[2016-11-22] MEDS: INSULIN ASPART SUPPLEMENTAL SCALE SQ SCH ×3 (07:33→20:20)
[2016-11-22] MEDS: GLIMEPIRIDE 4 MG TAB PO SCH ×2 (07:33→16:07)
[2016-11-22] MEDS: predniSONE 5 MG TAB PO SCH (07:46)
[2016-11-22] MEDS: PANTOPRAZOLE SOD 40 MG DELAYED RELEASE TAB PO SCH (07:47)
[2016-11-22] MEDS: SPIRONOLACTONE 25 MG TAB PO SCH ×3 (07:47→17:55)
[2016-11-22] MEDS: MULTIVITAMINS/MINERALS THERAPEUTIC TAB PO SCH ×2 (07:47→20:10)
[2016-11-22] MEDS: DOCUSATE SODIUM 100 MG CAP PO SCH ×2 (07:47→20:10)
[2016-11-22] MEDS: POTASSIUM CHLORIDE 10 MEQ CAP PO SCH ×2 (07:48→20:10)
[2016-11-22] MEDS: DILTIAZEM HCL 90 MG TAB PO SCH (07:48)
[2016-11-22 07:50] LABS: HEMATOCRIT 23.9 % (35.0-46.0); MEAN CELL VOLUME 66.1 FL (80.0-100.0); MEAN CORPUSCULAR HEMOGLOBIN 19.9 PG (27.0-34.0); MEAN CORPUSCULAR HGB CONC 30.1 % (32.0-36.0); PLATELET COUNT 269 TH/MM3 (150-450); RED BLOOD COUNT 3.62 MIL/MM3 (4.00-5.30); RED CELL DISTRIBUTION WIDTH 18.9 % (11.6-17.2)
[2016-11-22 08:04] LABS: BICARBONATE 27.5 MEQ/L (21.0-32.0); POTASSIUM 4.8 MEQ/L (3.5-5.1)
[2016-11-22 08:23] LABS: REVIEW FLAG FINAL
[2016-11-22] MEDS ORDERED: SODIUM CHLOR 0.9% 250 ML INJ 250 ML IV ONE (09:00)
[2016-11-22] MEDS ORDERED: FUROSEMIDE 20 MG/2 ML VIAL IV SCH (09:00)
[2016-11-22] MEDS: SODIUM CHLORIDE 0.9% FLUSH 5 ML FLUSH IVF SCH ×2 (09:00→20:10)
[2016-11-22] MEDS: ENOXAPARIN SODIUM 40 MG/0.4 ML SYRINGE SQ SCH (11:45)
--- NOTE | 2016-11-22 12:08 | HHI.PR ---
Subjective Subjective Remarks right thigh pain, feels heavy, "worst pain than knee" c/o dizziness today no cp no sob no fever eating okay Review of Systems Constitutional Constitutional Remarks 12 point ROS completed, negative except as noted above Vitals/Results Intake & Output 11/21/16 11/21/16 11/22/16 15:00 23:00 07:00 Intake Total 240 ml 120 ml Balance 240 ml 120 ml Intake Oral 240 ml 120 ml # Voids 2 2 1 # Bowel Movements 0 0 0 Vital Signs Vital Signs Date Time Temp Pulse Resp B/P Pulse Ox O2 Delivery O2 Flow Rate FiO2 11/22/16 08:00 96.6 60 18 120/64 94 11/22/16 04:20 97.2 65 17 118/64 94 11/22/16 00:15 96.9 63 17 116/61 94 11/21/16 20:15 97.0 68 17 152/68 95 11/21/16 16:00 97.3 67 16 122/58 93 CBC/BMP: 11/22/16 0634 11/22/16 0634 Lab Results Laboratory Tests Test 11/22/16 11/22/16 11/22/16 06:34 08:58 11:27 White Blood Count 11.0 TH/MM3 Red Blood Count 3.62 MIL/MM3 Hemoglobin 7.2 GM/DL Hematocrit 23.9 % Mean Corpuscular Volume 66.1 FL Mean Corpuscular Hemoglobin 19.9 PG Mean Corpuscular Hemoglobin 30.1 % Concent Red Cell Distribution Width 18.9 % Platelet Count 269 TH/MM3 Mean Platelet Volume 8.7 FL Sodium Level 135 MEQ/L Potassium Level 4.8 MEQ/L Chloride Level 102 MEQ/L Carbon Dioxide Level 27.5 MEQ/L Anion Gap 6 MEQ/L Blood Urea Nitrogen 15 MG/DL Creatinine 0.80 MG/DL Estimat Glomerular Filtration 70 ML/MIN Rate Random Glucose 250 MG/DL Calcium Level 8.6 MG/DL Blood Type O POSITIVE O POSITIVE Crossmatch Leukocyte-Reduced Red Blood Cells Blood Bank Comment Physical Exam General General Appearance: Well Developed, Well Nourished, No Acute Distress, Comfortable, Pale Eyes Eye Exam: Pupils Equal, Pupils Reactive Ears & Nose Ears & Nose Exam: Nasal Mucosa [place] Throat Throat Exam: Oral Mucosa [place] & Moist Neck Neck Exam: Neck Supple, Trachea Midline Pulmonary Resp Exam: Clear Bilaterally, No Distress Cardiology CV Exam: Regular, Normal Sinus Rhythm, Good Perfusion Gastrointestinal/Abdomen GI Exam: Soft, Non-Tender, Bowel Sounds Present, Non-Distended Musculoskeletal MS Remarks Right knee dressing D/I Integumentary Skin Exam: Warm, Dry Extremeties Extremities Exam: No Edema, Pedal Pulses Palpable Neurologic Neuro Exam: Alert, Awake, Oriented, Speech Clear, Pipe Stem Sawyer Equal Psychiatric Psych Exam: Appropriate Responses VTE Prophylaxis VTE Prophylaxis Meds: Lovenox PUD Prophylasis PUD Prophylaxis: Protonix Assessment/Plan Problem List: (1) Status post total knee replacement, 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 muscle spasm, try Flexeril PRN Anemia, Hx PRETTY, post op pt endorses hx of PRETTY, see hematology as OP -HH 7.2.9 -give 2 unit PRBC today -HH in am History of paroxysmal A. fib, currently sinus rhythm. Stable Continuous cardiac telemetry -Continue with Rythmol, resume Cardizem CAD, stable Continue with home medications Sleep apnea, patient no longer uses CPAP due to mask not fitting. Has been stable, follows up with sleep specialist -Monitor Type 2 diabetes, uncontrolled, on Prednisone -Continue with by mouth hypoglycemic, continue Amaryl Accu-Cheks before meals and at bedtime with insulin therapy Hypertension, stable Continue with home medications Continue with Lovenox for DVT prophylaxis Continue with Protonix for GI prophylaxis CBC in am Poss rehab in am D/W RN D/W Dr. Witt D/W pt. This patient was seen by myself and Dr. Witt, this note is written on his behalf Problem Qualifiers (1) Sleep apnea: Qualified Code: G47.30 - Sleep apnea, unspecified type (2) HTN (hypertension): Qualified Code: I10 - Essential hypertension (3) CAD (coronary artery disease): Qualified Code: I25.10 - Coronary artery disease involving [place] coronary artery of [place] heart without angina pectoris (4) Anemia: Carri [place] [facility] November 22, 2016 12:08
--- NOTE | 2016-11-22 12:54 | PD.ORT.PN ---
Subjective Subjective Remarks feels better c/o thigh pain by tourniquette Objective Vitals Vital Signs Date Time Temp Pulse Resp B/P Pulse Ox O2 Delivery O2 Flow Rate FiO2 11/22/16 08:00 96.6 60 18 120/64 94 11/22/16 04:20 97.2 65 17 118/64 94 11/22/16 00:15 96.9 63 17 116/61 94 11/21/16 20:15 97.0 68 17 152/68 95 11/21/16 16:00 97.3 67 16 122/58 93 I/O 11/21/16 11/21/16 11/21/16 11/22/16 11/22/16 11/22/16 07:00 15:00 23:00 07:00 15:00 23:00 Intake Total 120 ml 240 ml 120 ml Output Total 375 ml Balance -255 ml 240 ml 120 ml Intake Oral 120 ml 240 ml 120 ml Output Urine Total 375 ml # Voids 2 2 1 # Bowel Movements 0 0 0 0 Result Diagram: 11/22/16 0634 11/22/16 0634 Procedures Right TKA Objective Remarks The patient's incision is C/D/I with min ecchymosis. EHL/TA/G intact. 2+ pedal pulse. Minimal swelling. Calf is soft and nontender. + SILT. Assessment & Plan Assessment and Plan POD #2: Right TKA 1. WBAT RLE 2. Lovenox for DVT prophylaxis 3. Acute blood loss anemia (with pre-existing iron deficient anemia) -> transfusion per PMD 4. Anticipatory discharge to SNF on Friday. Shaun Rodriguez MD November 22, 2016 12:54
[2016-11-22] MEDS: ATORVASTATIN 40 MG TAB PO SCH (20:10)
[2016-11-22] MEDS: CYCLOBENZAPRINE HCL 10 MG TAB PO PRN (20:10)
[2016-11-22] MEDS: ZOLPIDEM TARTRATE 10 MG TAB PO PRN (23:35)
[2016-11-23] VITALS: BP 130/64; PULSE 67; RESP 22; TEMP 97; O2SAT 94
[2016-11-23 04:00] VITALS: BP 136/74; PULSE 69; RESP 22; TEMP 96.1; O2SAT 96
[2016-11-23 05:22] LABS: HEMATOCRIT 30.7 % (35.0-46.0); MEAN CELL VOLUME 67.5 FL (80.0-100.0); MEAN CORPUSCULAR HEMOGLOBIN 21.7 PG (27.0-34.0); MEAN CORPUSCULAR HGB CONC 32.2 % (32.0-36.0); PLATELET COUNT 293 TH/MM3 (150-450); RED BLOOD COUNT 4.56 MIL/MM3 (4.00-5.30); RED CELL DISTRIBUTION WIDTH 19.6 % (11.6-17.2); WHITE BLOOD COUNT 9.1 TH/MM3 (4.0-11.0)
[2016-11-23 05:27] LABS: REVIEW FLAG FINAL
[2016-11-23 05:53] LABS: BICARBONATE 29.6 MEQ/L (21.0-32.0); POTASSIUM 3.9 MEQ/L (3.5-5.1)
[2016-11-23] MEDS: INSULIN ASPART SUPPLEMENTAL SCALE SQ SCH ×2 (06:09→12:03)
[2016-11-23] MEDS: LEVOTHYROXINE SODIUM 25 MCG TAB PO SCH (06:09)
[2016-11-23] MEDS: GLIMEPIRIDE 4 MG TAB PO SCH (06:09)
[2016-11-23] MEDS: PROPAFENONE HCL 150 MG TAB PO SCH ×2 (06:09→13:54)
--- NOTE | 2016-11-23 06:45 | PD.ORT.PN ---
Subjective Subjective Remarks POd 3 s/p right TKA doing well. out of bed with therapy. using CPM. no complaints. Objective Vitals Vital Signs Date Time Temp Pulse Resp B/P Pulse Ox O2 Delivery O2 Flow Rate FiO2 11/23/16 04:00 96.1 69 22 136/74 96 11/23/16 00:00 97.0 67 22 130/64 94 11/22/16 21:25 97.4 63 18 134/68 95 11/22/16 17:30 97.5 62 18 148/73 95 11/22/16 16:00 97.8 67 18 148/73 95 11/22/16 14:00 96.7 63 18 139/66 92 11/22/16 13:40 97.5 64 18 129/62 92 11/22/16 12:00 97.8 64 18 129/62 92 11/22/16 08:00 96.6 60 18 120/64 94 I/O 11/22/16 11/22/16 11/22/16 11/23/16 11/23/16 11/23/16 07:00 15:00 23:00 07:00 15:00 23:00 Intake Total 120 ml 600 ml 780 ml 240 ml Balance 120 ml 600 ml 780 ml 240 ml Intake Oral 120 ml 600 ml 780 ml 240 ml # Voids 1 4 2 1 # Bowel Movements 0 0 0 0 Result Diagram: 11/23/167 11/23/16 0437 Procedures Right TKA Objective Remarks RLE: dressing clean and dry. intact. NVI. +CPM. Assessment & Plan Assessment and Plan POD #3: Right TKA 1. WBAT RLE 2. Lovenox for DVT prophylaxis 3. Acute blood loss anemia (with pre-existing iron deficient anemia) -> transfusion per PMD 4. DC to SNf today -f/u in 2 weeks with Jason Anderson November 23, 2016 06:45
[2016-11-23 07:49] VITALS: BP 159/83; PULSE 63; RESP 16; TEMP 97.3; O2SAT 92
[2016-11-23] MEDS: SODIUM CHLORIDE 0.9% FLUSH 5 ML FLUSH IVF SCH (09:00)
[2016-11-23] MEDS: DOCUSATE SODIUM 100 MG CAP PO SCH (09:10)
[2016-11-23] MEDS: POTASSIUM CHLORIDE 10 MEQ CAP PO SCH (09:10)
[2016-11-23] MEDS: MULTIVITAMINS/MINERALS THERAPEUTIC TAB PO SCH (09:10)
[2016-11-23] MEDS: PANTOPRAZOLE SOD 40 MG DELAYED RELEASE TAB PO SCH (09:10)
[2016-11-23] MEDS: DILTIAZEM HCL 90 MG TAB PO SCH (09:10)
[2016-11-23] MEDS: predniSONE 5 MG TAB PO SCH (09:10)
[2016-11-23] MEDS: SPIRONOLACTONE 25 MG TAB PO SCH ×2 (09:10→13:54)
[2016-11-23] MEDS: CYCLOBENZAPRINE HCL 10 MG TAB PO PRN (09:10)
[2016-11-23] MEDS: ACETAMINOPHEN/HYDROcodone 325 MG/10 MG TAB PO PRN ×2 (09:11→13:57)
[2016-11-23] MEDS: SODIUM CHLOR 0.9% 1000 ML INJ 1,000 ML IV SCH (11:00)
[2016-11-23 11:51] VITALS: BP 141/75; PULSE 62; RESP 16; TEMP 97.5; O2SAT 93
[2016-11-23] MEDS: ENOXAPARIN SODIUM 40 MG/0.4 ML SYRINGE SQ SCH (12:03)
--- NOTE | 2016-11-23 12:48 | HHI.PR ---
Subjective Subjective Remarks Resting in bed No acute shortness of breath Pain management effective aFebrile Constipation (Srinivasa Koo) Review of Systems Constitutional Constitutional: Weakness (generalized) Constitutional Remarks 10 point ROS done, positives include some generalized weakness, constipation otherwise systems unremarkable unless mentioned (Srinivasa Koo) GI/Abdomen GI/Abdominal Exam: Constipation (Srinivasa Koo) Integumentary Skin: Wounds (right knee, clean dry and intact) (Srinivasa Koo) Psychiatric Psychiatric: Normal Mood (Srinivasa Koo) Vitals/Results Intake & Output 11/22/16 11/22/16 11/23/16 15:00 23:00 07:00 Intake Total 600 ml 780 ml 240 ml Balance 600 ml 780 ml 240 ml Intake Oral 600 ml 780 ml 240 ml # Voids 4 2 1 # Bowel Movements 0 0 0 Vital Signs Vital Signs Date Time Temp Pulse Resp B/P Pulse Ox O2 Delivery O2 Flow Rate FiO2 11/23/16 11:51 97.5 62 16 141/75 93 11/23/16 07:49 97.3 63 16 159/83 92 11/23/16 04:00 96.1 69 22 136/74 96 11/23/16 00:00 97.0 67 22 130/64 94 11/22/16 21:25 97.4 63 18 134/68 95 11/22/16 17:30 97.5 62 18 148/73 95 11/22/16 16:00 97.8 67 18 148/73 95 11/22/16 14:00 96.7 63 18 139/66 92 11/22/16 13:40 97.5 64 18 129/62 92 (Srinivasa Koo) CBC/BMP: 11/23/16 0437 11/23/16 0437 Lab Results Laboratory Tests Test 11/23/16 04:37 White Blood Count 9.1 TH/MM3 Red Blood Count 4.56 MIL/MM3 Hemoglobin 9.9 GM/DL Hematocrit 30.7 % Mean Corpuscular Volume 67.5 FL Mean Corpuscular Hemoglobin 21.7 PG Mean Corpuscular Hemoglobin 32.2 % Concent Red Cell Distribution Width 19.6 % Platelet Count 293 TH/MM3 Mean Platelet Volume 8.5 FL Sodium Level 139 MEQ/L Potassium Level 3.9 MEQ/L Chloride Level 101 MEQ/L Carbon Dioxide Level 29.6 MEQ/L Anion Gap 8 MEQ/L Blood Urea Nitrogen 13 MG/DL Creatinine 0.79 MG/DL Estimat Glomerular Filtration 71 ML/MIN Rate Random Glucose 159 MG/DL Calcium Level 9.3 MG/DL Current Medications Administered Medications Medications (Trade) Dose Ordered Sig/Maryana Route PRN Reason Start Time Stop Time Status Last Admin Dose Admin Atorvastatin Calcium (Lipitor) 40 mg HS PO 11/20/16 21:00 11/22/16 20:10 Glimepiride (Amaryl) 4 mg BIDAC PO 11/20/16 16:00 11/23/16 06:09 Levothyroxine Sodium (Synthroid) 25 mcg DAILY@06 PO 11/21/16 06:00 11/23/16 06:09 Potassium Chloride (KCl) 10 meq BID PO 11/20/16 21:00 11/23/16 09:10 Prednisone (Deltasone) 5 mg DAILY PO 11/21/16 09:00 11/23/16 09:10 Propafenone HCl (Rythmol) 150 mg Q8HR PO 11/20/16 14:00 11/23/16 06:09 Spironolactone (Aldactone) 25 mg TID PO 11/20/16 13:00 11/23/16 09:10 Zolpidem Tartrate (Ambien) 10 mg HS PRN PO INSOMNIA 11/20/16 12:00 11/22/16 23:35 Pantoprazole Sodium 40 mg 40 mg DAILY PO 11/21/16 09:00 11/23/16 09:10 Sodium Chloride (NS 1000 ml Inj) 1,000 ml @ 100 mls/hr Q10H IV 11/20/16 13:00 11/21/16 10:48 IV Flush (NS Flush) 2 ml BID IVF 11/20/16 21:00 11/23/16 09:00 Enoxaparin Sodium (Lovenox Inj) 40 mg Q24H SQ 11/21/16 11:00 11/30/16 11:01 11/23/16 12:03 Acetaminophen/ Hydrocodone Bitart ([place] 10-325 Mg) 1 tab Q4H PRN PO PAIN LESS THAN 5 ON SCALE 11/20/16 12:00 11/23/16 09:11 Acetaminophen/ Hydrocodone Bitart ([place] 10-325 Mg) 2 tab Q6H PRN PO PAIN SCALE 5 TO 10 11/20/16 12:00 11/21/16 12:56 Multivitamins/ Minerals Therapeutic (Theragran M Tab) 1 tab BID PO 11/21/16 21:00 01/20/17 20:59 11/23/16 09:10 Ondansetron HCl (Zofran Inj) 4 mg Q6H PRN IVP NAUSEA OR VOMITING 11/20/16 12:00 11/21/16 08:51 Docusate Sodium (Colace) 100 mg BID PO 11/21/16 21:00 11/23/16 09:10 Magnesium Hydroxide (Milk Of Magngenesis Lijess) 30 ml DAILY PRN PO CONSTIPATION 11/20/16 12:00 11/21/16 10:46 Morphine Sulfate (Morphine Inj) 2 mg Q3H PRN IV PUSH pain greater than 5 11/20/16 12:00 11/20/16 20:50 Alprazolam (Xanax) 0.25 mg Q8H PRN PO anxiety 11/20/16 17:15 11/21/16 10:47 Diltiazem HCl (Cardizem) 180 mg DAILY PO 11/21/16 12:00 11/23/16 09:10 Cyclobenzaprine HCl (Flexeril) 10 mg Q8H PRN PO muscle spasms 11/22/16 12:30 11/23/16 09:10 (Srinivasa Koo) Physical Exam General General Appearance: Well Developed, Well Nourished, No Acute Distress, Comfortable, Pale (Srinivasa KooP) Eyes Eye Exam: Pupils Equal, Pupils Reactive (Srinivasa KooP) Ears & Nose Ears & Nose Exam: Nasal Mucosa [place] (Srinivasa KooP) Throat Throat Exam: Oral Mucosa [place] & Moist (Srinivasa KooP) Neck Neck Exam: Neck Supple, Trachea Midline (Srinivasa KooP) Pulmonary Resp Exam: Clear Bilaterally, No Distress (Srinivasa KooP) Cardiology CV Exam: Regular, Normal Sinus Rhythm, Good Perfusion (Srinivasa Koo) Gastrointestinal/Abdomen GI Exam: Soft, Non-Tender, Bowel Sounds Present, Non-Distended (Srinivasa KooP) Integumentary Skin Exam: Warm, Dry (Srinivasa KooP) Extremeties Extremities Exam: No Edema, Pedal Pulses Palpable (Srinivasa KooP) Neurologic Neuro Exam: Alert, Awake, Oriented, Speech Clear, Etl Architect Equal (Srinivasa KooP) Psychiatric Psych Exam: Appropriate Responses (Srinivasa Koo) VTE Prophylaxis VTE Prophylaxis Meds: Lovenox (Srinivasa Koo) PUD Prophylasis PUD Prophylaxis: Protonix (Srinivasa Koo) Assessment/Plan Problem List: (1) Status post total knee replacement, 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 fib, currently sinus rhythm. Stable Patient monitored on telemetry and medical management CAD, stable Continue with home medications Type 2 diabetes, uncontrolled, on Prednisone Possibly causing some of her hyperglycemia Accu-Cheks before meals and at bedtime with insulin therapy Hypertension, stable Continue with home medications Continue with Lovenox for DVT prophylaxis Continue with Protonix for GI prophylaxis Discharge planning with case management, cleared per Orth O looking at rehabilitation snf options 3784 on chart D/W RN D/W Dr. Witt D/W pt. Discussed with case management, probable discharge today (Srinivasa Koo) Assessment/Plan pt is seen & Examined d/w PT d/w srinivasa malave w above medically stable for dc dc to SNF see MRS see HRS form f/u pcp/Ortho (Jase Witt MD) Problem Qualifiers (1) Sleep apnea: Qualified Code: G47.30 - Sleep apnea, unspecified type (2) HTN (hypertension): Qualified Code: I10 - Essential hypertension (3) CAD (coronary artery disease): Qualified Code: I25.10 - Coronary artery disease involving [place] coronary artery of [place] heart without angina pectoris (4) Anemia: Srinivasa Koo November 23, 2016 12:48 Jase Witt MD November 23, 2016 15:29
[2016-11-23] MEDS ORDERED: CYCL1TAB29 PO (13:33)
[2016-11-23] MEDS ORDERED: BISACODYL 10 MG SUPP RECTAL ONE (14:00)
--- NOTE | 2016-11-24 16:49 | HHI.DS ---
Discharge Summary Admission Date November 20, 2016 at 06:40 Discharge Date: November 23, 2016 Admitting Diagnosis Primary localized OA, lower leg Status post total knee arthroplasty, right Diagnosis: (1) Status post total knee replacement, right Diagnosis: Principal (2) Primary localized osteoarthrosis, lower leg Diagnosis: Principal Procedures Right TKA Brief History This is a 76 year old female patient with severe OA of the right knee. CBC/BMP: 11/23/16 0437 11/23/16 0437 Significant Findings Laboratory Tests Test 11/22/16 11/23/16 06:34 04:37 Red Blood Count 3.62 MIL/MM3 (4.00-5.30) Hemoglobin 7.2 GM/DL 9.9 GM/DL (11.6-15.3) (11.6-15.3) Hematocrit 23.9 % 30.7 % (35.0-46.0) (35.0-46.0) Mean Corpuscular Volume 66.1 FL 67.5 FL (80.0-100.0) (80.0-100.0) Mean Corpuscular Hemoglobin 19.9 PG 21.7 PG (27.0-34.0) (27.0-34.0) Mean Corpuscular Hemoglobin 30.1 % Concent (32.0-36.0) Red Cell Distribution Width 18.9 % 19.6 % (11.6-17.2) (11.6-17.2) Sodium Level 135 MEQ/L (136-145) Estimat Glomerular Filtration 70 ML/MIN (>89) 71 ML/MIN (>89) Rate Random Glucose 250 MG/DL 159 MG/DL (74-106) (74-106) PE at Discharge RLE: dressing clean and dry. intact. NVI. +CPM. Hospital Course The patient was admitted to the hospital for severe OA of the right knee to have a right TKA. The patient's surgery went well with no complications. The patient is WBAT on the RLE. The patient is on a diabetic diet post op. The patient was placed on Lovenox followed by ASA for DVT prophylaxis. The patient was discharged to a SNF and will f/u in the office with Dr. Rodriguez in 1-2 weeks. Pt Condition on Discharge: Stable Discharge Disposition: Discharge to SNF Discharge Instructions Diet Instructions: Diabetic Diet, Gluten Free Diet Activities You Can Perform: Weight Bearing as Ernestine Activities to Avoid: Strenuous Activity Follow up Referrals: Orthopedics with Shaun Rodriguez MD PCP Follow-up - 1 Week New Medications: Aspirin (Aspirin) 325 Mg Tab 325 MG PO DAILY Start Aspirin after Lovenox is completed. Prevent Blood Clot # 30 Ref 0 TAB Commode 3-in-1 (Commode 3-in-1) 1 Mis Mis 1 EA .ROUTE DIRECTED #1 Ref 0 EA CPM-Continuous Passive Motion Machine (CPM-Continuous Passive Motion Machine) 1 Ea Device 1 EA .ROUTE DIRECTED #1 Ref 0 EA Enoxaparin Inj (Lovenox Inj) 40 Mg/0.4 Ml Syr 40 MG SQ DAILY Start Aspirin after Lovenox is completed. Blood Clot Prevention # 10 Ref 0 SYRINGE Hydrocodone-Acetaminophen ([place]) 10-325 Mg Tab 1-2 TAB PO Q4H PRN PAIN #30 Ref 0 TAB Walker with Front Wheels (Walker with Front Wheels) 1 Mis Mis 1 EA .ROUTE DIRECTED #1 Ref 0 EA Cyclobenzaprine (Flexeril) 10 Mg Tab 10 MG PO Q8H PRN muscle spasms #30 TAB Continued Medications: Atorvastatin (Lipitor) 40 Mg Tab 40 MG PO HS Cholesterol Management #30 Ref 0 TAB Diltiazem (Diltiazem) 60 Mg Tab 180 MG PO DAILY PRN ANGINA Ref [address] (Nexium) 40 Mg Capdr 40 MG PO DAILY Ref 0 CAP Glimepiride (Glimepiride) 4 Mg Tab 4 MG PO BIDAC Blood Sugar Management #60 Ref 0 TAB Insulin Lispro (Human) Inj (Humalog Inj) 1,000 Unit/10 Ml Vial 1-9 UNITS SQ QID Max dose at bedtime:( )units; sugars< 70,(0)units; sugars 150- 199,(1)unit; sugars 200-249,(3)units; sugars 250-299,(5)units; sugars 300-349,(7 )units; sugars more than 349,(9)units. Blood Sugar Management #1 Ref 0 VIAL Levothyroxine (Levothyroxine) 25 Mcg Tab 25 MCG PO DAILY Thyroid #30 Ref 0 TAB Linagliptin-Metformin (Jentadueto) 2.5-1,000 Mg Tab 1 TAB PO BID Blood Sugar Management #60 Ref 0 TAB Potassium Chloride ER (Potassium Chloride ER) 10 Meq Cap 10 MEQ PO BID Electrolyte Replacement #60 Ref 0 CAP Prednisone (Prednisone) 5 Mg Tab 5 MG PO DAILY Ref 0 TAB Propafenone (Propafenone) 150 Mg Tab 150 MG PO Q8HR Regulate Heart Beat #90 Ref 0 TAB Spironolactone (Spironolactone) 25 Mg Tab 25 MG PO TID #30 Ref 0 TAB Zolpidem (Ambien) 10 Mg Tab 10 MG PO HS PRN INSOMNIA Ref 0 TAB Kye Marr November 24, 2016 16:48
== END 2016-11-23 19:00 | DRG 470 ==
LOC: HSDI 11-20 06:40 → N06B 11-20 14:01
PROVIDERS: ADMIT Orthopaedic Surgery; ATTEND Orthopaedic Surgery
PROC: 3E0T3CZ (ICD-10-PCS; 2016-11-20)
PROC: 0SRC0J9 Replacement of Right Knee Joint with Synthetic Substitute, Cemented, Open Approach (ICD-10-PCS; principal; 2016-11-20 09:49)
PROC: 30233N1 Transfusion of Nonautologous Red Blood Cells into Peripheral Vein, Percutaneous Approach (ICD-10-PCS; 2016-11-22)
DX: M17.11 Unilateral primary osteoarthritis, right knee (principal); E11.65 Type 2 diabetes mellitus with hyperglycemia; I48.0 Paroxysmal atrial fibrillation; D62 Acute posthemorrhagic anemia; I10 Essential (primary) hypertension; G47.30 Sleep apnea, unspecified; E78.5 Hyperlipidemia, unspecified; E03.9 Hypothyroidism, unspecified; I25.10 Atherosclerotic heart disease of native coronary artery without angina pectoris; D50.9 Iron deficiency anemia, unspecified; K21.9 Gastro-esophageal reflux disease without esophagitis; K59.00 Constipation, unspecified; Z79.4 Long term (current) use of insulin; M62.838 Other muscle spasm
CPT/HCPCS: 36430; 73560; 76937; 80048; 82948; 85027; 86850; 86900; 86901; 86920; 94150; C1776; C9290; J0131; J0171; J0735; J1100; J1580; J1650; J1815; J1885; J1940; J2175; J2250; J2270; J2370; J2405; J2795; J3010; J3370; J7030; J7050; J7120; J7512; L1830; P9016

== ENCOUNTER → 2016-11-07 | Outpatient (CLI) | payer MEDICARE, OTHER ==
[~2016-11-07] MED LIST: ALBU1AER INH; AMBI10TA PO; ASPI325T PO; ATOR20TA42 PO; CART120C2 PO; COMMODE 3-IN-11 MIS; CPMMACHINE; CYCL1TAB29 PO; DILT60TA PO; ENOX40P SQ; GLIM4TAB PO; GLYB5TAB3 PO; HUMALOG SQ; HYDR-3366 PO; LEVO25TA4 PO; LEVO50IN PO; LINA2.5T5 PO; LIPI40TA PO; LORA.5 PO; NEXI40CA PO; NITR.4 SL; PARO20 PO; POTA-243 PO; POTA10CA PO; PRED5TAB PO; PREV30CA36 PO; PROP150T PO; SPIR25TA PO; ULTR50TA PO; WALKER WHEELS/F1 MIS; ZOLP10TA3 PO; [UNRECOGNIZED DRUG - CODE] PO
[2016-11-07 10:09] LABS: AUTOMATED NEUTROPHIL # 3.4 TH/MM3 (1.8-7.7); BASOPHIL # 0.1 TH/MM3 (0-0.2); BASOPHIL % 1.2 % (0.0-2.0); EOSINOPHIL # 0.3 TH/MM3 (0-0.4); EOSINOPHIL % 4.4 % (0.0-4.0); HEMATOCRIT 31.5 % (35.0-46.0); HEMO FLAGS AUTO DIFF; LYMPH % 30.1 % (9.0-44.0); LYMPHOCYTE # 1.9 TH/MM3 (1.0-4.8); MEAN CELL VOLUME 66.4 FL (80.0-100.0); MEAN CORPUSCULAR HEMOGLOBIN 20.4 PG (27.0-34.0); MEAN CORPUSCULAR HGB CONC 30.8 % (32.0-36.0); MONO % 10.3 % (0.0-8.0); PLATELET COUNT 277 TH/MM3 (150-450); RED BLOOD COUNT 4.74 MIL/MM3 (4.00-5.30); WHITE BLOOD COUNT 6.2 TH/MM3 (4.0-11.0)
[2016-11-07 10:20] LABS: APTT (PATIENT) 26.1 SEC (24.3-30.1); PROTHROMBIN TIME - PATIENT 10.7 SEC (9.8-11.6)
[2016-11-07 10:22] LABS: WESTERGREN SEDIMENTATION RATE 14 mm/hr (0-30)
[2016-11-07 10:28] LABS: BLOOD, URINE NEG (NEG); COMMENT (UR) CULT NOT INDICATED; CULTURE IF INDICATED CULT NOT INDICATED; GLUCOSE,URINE NEG (NEG); KETONE, URINE NEG (NEG); NITRITE,URINE NEG (NEG); PH, URINE 6.5 (5.0-8.5); SQUAMOUS EPITHELIAL CELL URINE 1 /hpf (0-5); URINE COLOR YELLOW (YELLW/STRAW)
[2016-11-07 10:29] LABS: ALT (GPT) 20 U/L (10-53); ANION GAP 7 MEQ/L (5-15); AST (GOT) 12 U/L (15-37); BICARBONATE 27.1 MEQ/L (21.0-32.0); BLOOD UREA NITROGEN 13 MG/DL (7-18); CHLORIDE 105 MEQ/L (98-107); GLOMERULAR FILTRATION RATE 78 ML/MIN (>89); GLUCOSE,FASTING 84 MG/DL (74-99); POTASSIUM 4.2 MEQ/L (3.5-5.1); SODIUM (NA) 139 MEQ/L (136-145)
--- NOTE | 2016-11-07 10:30 | RADRPT ---
EXAM DATE/TIME: 11/07/2016 10:10 [facility] COMPARISON: CHEST PA & LAT, January 31, 2015, 17:35. INDICATIONS : Evaluate for pneumonia, pneumothorax, or communicable disease. Pre op for right knee replacement surg anju. MEDICAL HISTORY : Diabetes. Atrial fibrillation. SURGICAL HISTORY : None. ENCOUNTER: Initial ACUITY: 1 day PAIN SCORE: 0/10 LOCATION: Bilateral chest FINDINGS: PA and lateral views of the chest demonstrate the lungs to be symmetrically aerated without evidence of mass, infiltrate or effusion. The cardiomediastinal contours are unremarkable. Osseous structure s are intact. No pneumothorax is noted. CONCLUSION: No acute disease. Daryl Ribeiro MD on November 07, 2016 at 10:25 Board Certified Radiologist. This report was verified electronically.
[2016-11-07 10:31] LABS: ALKALINE PHOSPHATASE 65 U/L (45-117); TOTAL BILIRUBIN ADULT 0.4 MG/DL (0.2-1.0)
[2016-11-07 10:51] LABS: KERATOCYTES OCC (NORMAL); OVALOCYTES 1+ (NORMAL); PLATELET ESTIMATE SMEAR NORMAL (NORMAL); PLATELET MORPHOLOGY NORMAL (NORMAL); SCAN/DIFF AUTO DIFF CONFIRMED
== END ==
LOC: CPRE 09:05
PROVIDERS: ATTEND Orthopaedic Surgery
DX: Z01.812 Encounter for preprocedural laboratory examination (principal); Z01.811 Encounter for preprocedural respiratory examination; M25.50 Pain in unspecified joint; M17.11 Unilateral primary osteoarthritis, right knee
CPT/HCPCS: 36415; 71020; 80053; 81001; 85025; 85610; 85652; 85730

== ENCOUNTER 2017-01-24 15:12 | Inpatient (IN) | payer MEDICARE, OTHER ==
[~2017-01-24] VITALS: Ht 167.6 cm; Wt 73.3 kg
[~2017-01-24 15:12] MED LIST changes: -ALBU1AER INH; -ATOR20TA42 PO; -CART120C2 PO; -GLYB5TAB3 PO; -LEVO50IN PO; -LORA.5 PO; -NITR.4 SL; -PARO20 PO; -POTA-243 PO; -PREV30CA36 PO; -ULTR50TA PO; -ZOLP10TA3 PO; -[UNRECOGNIZED DRUG - CODE] PO
[2017-01-24 15:18] VITALS: BP 127/64; PULSE 90; RESP 18; TEMP 98.1; O2SAT 100
[2017-01-24] MEDS ORDERED: OMEP20TA PO (15:24)
[2017-01-24] MEDS ORDERED: LOSA25TA PO (15:24)
[2017-01-24] MEDS ORDERED: ONDANSETRON HCL 4 MG/2 ML VIAL IV PUSH ONE (16:15)
[2017-01-24] MEDS ORDERED: MORPHINE SULFATE 4 MG/ML INJ IV PUSH ONE (16:15)
[2017-01-24] MEDS ORDERED: SODIUM CHLOR 0.9% 1000 ML INJ 1,000 ML IV SCH (16:15)
[2017-01-24] MEDS ORDERED: MORPHINE SULFATE 8 MG/ML INJ IV PUSH ONE ×2 (16:30→18:15)
[2017-01-24 16:42] LABS: AUTOMATED NEUTROPHIL # 12.8 TH/MM3 (1.8-7.7); BASOPHIL # 0.6 TH/MM3 (0-0.2); BASOPHIL % 3.7 % (0.0-2.0); EOSINOPHIL # 0.1 TH/MM3 (0-0.4); EOSINOPHIL % 0.4 % (0.0-4.0); HEMATOCRIT 43.5 % (35.0-46.0); LYMPH % 5.8 % (9.0-44.0); LYMPHOCYTE # 0.9 TH/MM3 (1.0-4.8); MEAN CELL VOLUME 79.1 FL (80.0-100.0); MEAN CORPUSCULAR HEMOGLOBIN 25.6 PG (27.0-34.0); MEAN CORPUSCULAR HGB CONC 32.4 % (32.0-36.0); MONO % 4.4 % (0.0-8.0); NEUT % 85.7 % (16.0-70.0); PLATELET COUNT 232 TH/MM3 (150-450); RED CELL DISTRIBUTION WIDTH 22.4 % (11.6-17.2); WHITE BLOOD COUNT 15.1 TH/MM3 (4.0-11.0)
[2017-01-24 16:43] LABS: BLOOD, URINE TRACE (NEG); GLUCOSE,URINE 500 mg/dL (NEG); KETONE, URINE TRACE mg/dL (NEG); NITRITE,URINE NEG (NEG)
[2017-01-24 16:49] LABS: CHLORIDE 101 MEQ/L (98-107); POTASSIUM 3.9 MEQ/L (3.5-5.1); SODIUM (NA) 138 MEQ/L (136-145)
[2017-01-24 16:51] LABS: RBC, URINE 0-3 /hpf (0-3); SQUAMOUS EPITHELIAL CELL URINE 0-5 /hpf (0-5); URINE COLOR STRAW (YELLW/STRAW); WBC, URINE 0-2 /hpf (0-5)
[2017-01-24 16:52] LABS: COMMENT (UR) CULT NOT INDICATED; CULTURE IF INDICATED CULT NOT INDICATED
[2017-01-24 16:53] LABS: ANION GAP 9 MEQ/L (5-15); BICARBONATE 27.9 MEQ/L (21.0-32.0); BLOOD UREA NITROGEN 13 MG/DL (7-18)
[2017-01-24 16:55] LABS: HEMO FLAGS AUTO DIFF
[2017-01-24 16:56] LABS: ALT (GPT) 64 U/L (10-53); AST (GOT) 73 U/L (15-37); GLOMERULAR FILTRATION RATE 69 ML/MIN (>89)
[2017-01-24 16:57] LABS: TOTAL BILIRUBIN ADULT 0.7 MG/DL (0.2-1.0)
[2017-01-24 16:59] LABS: ALKALINE PHOSPHATASE 81 U/L (45-117)
[2017-01-24 17:20] VITALS: BP 111/57; PULSE 85; RESP 16; O2SAT 100
--- NOTE | 2017-01-24 17:20 | RADRPT ---
EXAM DATE/TIME: 01/24/2017 16:41 [facility] COMPARISON: No previous studies available for comparison. INDICATIONS : Right low back pain. RADIATION DOSE: 37.12 CTDIvol (mGy) MEDICAL HISTORY : Diabetes mellitus type 2. SURGICAL HISTORY : Appendectomy. Hysterectomy.Cholecystectomy.Colectomy. ENCOUNTER: Initial ACUITY: 4 - 6 days PAIN SCALE: 9/10 LOCATION: Right low back TECHNIQUE: Volumetric scanning of the lumbar spine was performed. Multiplanar reconstructions in the sagittal, coronal and oblique axial planes were performed. Using automated exposure control and adjustment of the mA and/or kV according to patient size, radiation dose was kept as low as reasonably achievable t o obtain optimal diagnostic quality images. DICOM format image data is available electronically for review and comparison. FINDINGS: VERTEBRAE: Normal vertebral body height. There are bony degenerative changes lumbar spine. No compression fractu res are demonstrated. There is disc space narrowing at L5-S1. ALIGNMENT: No evidence of subluxation. T12-L1: The thecal sac has a normal diameter. No evidence of disc bulge or protrusion. The neural foramina are patent bilaterally. L1-L2: The thecal sac has a normal diameter. No evidence of disc bulge or protrusion. The neural foramina are patent bilaterally. L2-L3: Mild broad-based bulging. The neural foramina are patent bilaterally. L3-L4: Moderate diffuse broad-based bulging with narrowing of the neural foramina bilaterally. Mild spinal c anal stenosis. L4-L5: Moderate diffuse broad-based bulging and narrowing of the neural foramina bilaterally. Bilateral face t arthritis. Moderate spinal canal stenosis. L5-S1: Diffuse broad-based bulge and narrowing of the neural foramina bilaterally. Bilateral facet arthritis and hypertrophy ligamentum flavum. Moderate spinal canal stenosis. CONCLUSION: 1. There is moderate spinal canal stenosis at L4-5 and L5-S1. 2. There is mild spinal canal stenosis at L3-4. 3. There are bony degenerative changes involving the lumbar spine with disc degeneration and disc spa ce narrowing at L5-S1. 4. There is bilateral facet arthritis at multiple levels. Riki Potts MD on January 24, 2017 at 17:15 Board Certified Radiologist. This report was verified electronically.
[2017-01-24 17:35] LABS: BANDS 5 % (0-6); BASOPHILS 2 % (0-2); EOSINOPHILS 2 % (0-4); NEUTROPHIL # MANUAL DIFF 12.1 TH/MM3 (1.8-7.7); PLATELET ESTIMATE SMEAR NORMAL (NORMAL); PLATELET MORPHOLOGY NORMAL (NORMAL); POLYS (SEG NEUTROPHILS) 75 % (16-70); SCAN/DIFF FINAL DIFF MANUAL; WBC DIFF SAMPLE 100
--- NOTE | 2017-01-24 18:04 | PD ---
HPI Chief Complaint: Pain: Acute or Chronic Time Seen by Provider: 15:54 Travel History International Travel<30 days: No Contact w/Intl Traveler<30days: No Traveled to known affect area: No History of Present Illness HPI This 76-year-old female is complaining of back pain. She has a history of back pain. She says her back pain is usually on the right side has had all her life area last couple of days and having more diffuse pain over the lower back. 2 days ago she had a lot of vomiting. She was vomiting this morning and had chills. She had a knee replacement in November and was on oxycodone. After the knee replacement she went to a rehabilitation facility for a little bit and most recently has been at home with home health aide. She says the pain is quite severe and aggravated by any attempt to get up. She says she was unable to get up early today and came here by ambulance. PFSH Past Medical History Anemia: Yes Arthritis: No Asthma: No Autoimmune Disease: No Anxiety: Yes Depression: Yes Heart Rhythm Problems: No Cancer: No Cardiovascular Problems: Yes (ATRIAL FIB.) High Cholesterol: No Chemotherapy: No Chest Pain: Yes Congestive Heart Failure: No COPD: No Cerebrovascular Accident: No Coronary Artery Disease: Yes Diabetes: Yes Patient Takes Glucophage: No Diminished Hearing: No Endocrine: No Gastrointestinal Disorders: Yes (COLECTOMY DUE TO OBSTRUCTION) GERD: Yes Genitourinary: No Hepatitis: No Hiatal Hernia: Yes Immune Disorder: Yes (FIBROMYALGIA) Kidney Stones: No Musculoskeletal: Yes (ARTHRITIS) Neurologic: Yes Psychiatric: No Reproductive: No Respiratory: Yes (SLEEP APNEA, NO CPAP) Radiation Therapy: No Renal Failure: No Seizures: No Sickle Cell Disease: No Sleep Apnea: No Thyroid Disease: Yes Ulcer: Yes Influenza Vaccination: No ?: Not Menopausal: Yes Ovarian Cysts: Yes Past Surgical History Abdominal Surgery: Yes (COLECTOMY,KALA, EX LAP ) AICD: No Appendectomy: Yes Cardiac Surgery: No Cholecystectomy: Yes Ear Surgery: No Endocrine Surgery: Yes (GALL BLADDER SX) Eye Surgery: No Gynecologic Surgery: Yes (HYSTERECTOMY,) Hysterectomy: Yes Joint Replacement: No Oral Surgery: No Pacemaker: No Thoracic Surgery: No Other Surgery: Yes (choli/appy/sig resection, hysterectomy,ovarian cysts) Social History Alcohol Use: Yes (occ) Tobacco Use: No Substance Use: No Allergies-Medications (Allergen,Severity, Reaction): Coded Allergies: Ants (Verified Allergy, Severe, Anaphylaxis, 01/24/17) Benadryl (Verified Allergy, Severe, Anaphylaxis, 01/24/17) Dextrose (Verified Allergy, Severe, Anaphylaxis, 01/24/17) Iodine (Verified Allergy, Mild, Nausea/Vomiting, 01/24/17) STATES SHE RECENTLY HAD IT AND SHE WAS FINE Penicillin (Verified Allergy, Mild, Hives, 01/24/17) Uncoded Allergies: DIOXILLIN (Allergy, Mild, Hives, 10/01/06) ORAL PAIN MEDS (Allergy, Mild, Hives, 10/01/06) SOME ANITBIOTICS (Allergy, Mild, 10/01/06) Reported Meds & Prescriptions Reported Meds & Active Scripts Active Aspirin 325 Mg Tab 325 Mg PO DAILY Start Aspirin after Lovenox is completed. Reported Omeprazole 20 Mg Tab 20 Mg PO DAILY Losartan (Losartan Potassium) 25 Mg Tab 25 Mg PO DAILY Glimepiride 4 Mg Tab 4 Mg PO BIDAC Lipitor (Atorvastatin Calcium) 40 Mg Tab 40 Mg PO HS Levothyroxine (Levothyroxine Sodium) 25 Mcg Tab 25 Mcg PO DAILY Jentadueto (Linagliptin-Metformin) 2.5-1,000 Mg Tab 1 Tab PO BID Review of Systems General / Constitutional: Positive: Chills, No: Fever Eyes: No: Diploplia, Blurred Vision HENT: No: Headaches, Vertigo Cardiovascular: No: Chest Pain or Discomfort, Palpitations Respiratory: No: Cough, Shortness of Breath Gastrointestinal: Positive: Vomiting Genitourinary: No: Urgency, Frequency Musculoskeletal: No: Myalgias Skin: No Rash Psychiatric: No: Anxiety, Depression Endocrine: No: Cold Intolerance Hematologic/Lymphatic: No: Easy Bruising Physical Exam Narrative GENERAL: Well-developed female SKIN: Focused skin assessment warm/dry. HEAD: Atraumatic. Normocephalic. EYES: Pupils equal and round. No scleral icterus. No injection or drainage. ENT: No nasal bleeding or discharge. Mucous membranes pink and moist. NECK: Trachea midline. No JVD. CARDIOVASCULAR: Regular rate and rhythm. No murmur appreciated. RESPIRATORY: No accessory muscle use. Clear to auscultation. Breath sounds equal bilaterally. GASTROINTESTINAL: Abdomen soft, non-tender, nondistended. Hepatic and splenic margins not palpable. MUSCULOSKELETAL: No obvious deformities. No clubbing. No cyanosis. No edema. There is tenderness of the low back. NEUROLOGICAL: Awake and alert. No obvious cranial nerve deficits. Motor grossly within normal limits. Normal speech. Sensation and strength intact PSYCHIATRIC: Appropriate mood and affect; insight and judgment normal. Data Data Last Documented VS Vital Signs Date Time Temp Pulse Resp B/P Pulse Ox O2 Delivery O2 Flow Rate FiO2 01/24/17 17:20 16 01/24/17 17:20 85 111/57 100 Room Air 01/24/17 15:18 98.1 Orders Complete Blood Count With Diff (01/24/17 16:10) Comprehensive Metabolic Panel (01/24/17 16:10) Urinalysis - C+S If Indicated (01/24/17 16:10) Sodium Chlor 0.9% 1000 Ml Inj (Ns 1000 M (01/24/17 16:15) Ondansetron Inj (Zofran Inj) (01/24/17 16:15) Ct Lumb Spine W/O Contrast (01/24/17 16:13) Morphine Inj (Morphine Inj) (01/24/17 16:30) Morphine Inj (Morphine Inj) (01/24/17 18:15) Labs Laboratory Tests Test 01/24/17 01/24/17 16:20 16:30 Urine Color STRAW Urine Turbidity CLEAR Urine pH 7.0 Urine Specific [place] 1.009 Urine Protein NEG mg/dL Urine Glucose (UA) 500 mg/dL Urine Ketones TRACE mg/dL Urine Occult Blood TRACE Urine Nitrite NEG Urine Bilirubin NEG Urine Leukocyte Esterase NEG Urine RBC 0-3 /hpf Urine WBC 0-2 /hpf Urine Squamous Epithelial 0-5 /hpf Cells Microscopic Urinalysis Comment CULT NOT INDICATED White Blood Count 15.1 TH/MM3 Red Blood Count 5.50 MIL/MM3 Hemoglobin 14.1 GM/DL Hematocrit 43.5 % Mean Corpuscular Volume 79.1 FL Mean Corpuscular Hemoglobin 25.6 PG Mean Corpuscular Hemoglobin 32.4 % Concent Red Cell Distribution Width 22.4 % Platelet Count 232 TH/MM3 Mean Platelet Volume 8.6 FL Neutrophils (%) (Auto) 85.7 % Lymphocytes (%) (Auto) 5.8 % Monocytes (%) (Auto) 4.4 % Eosinophils (%) (Auto) 0.4 % Basophils (%) (Auto) 3.7 % Neutrophils # (Auto) 12.8 TH/MM3 Lymphocytes # (Auto) 0.9 TH/MM3 Monocytes # (Auto) 0.7 TH/MM3 Eosinophils # (Auto) 0.1 TH/MM3 Basophils # (Auto) 0.6 TH/MM3 CBC Comment AUTO DIFF Differential Total Cells 100 Counted Neutrophils % (Manual) 75 % Band Neutrophils % 5 % Lymphocytes % 10 % Monocytes % 6 % Eosinophils % 2 % Basophils % 2 % Neutrophils # (Manual) 12.1 TH/MM3 Differential Comment FINAL DIFF MANUAL Platelet Estimate NORMAL Platelet Morphology Comment NORMAL Sodium Level 138 MEQ/L Potassium Level 3.9 MEQ/L Chloride Level 101 MEQ/L Carbon Dioxide Level 27.9 MEQ/L Anion Gap 9 MEQ/L Blood Urea Nitrogen 13 MG/DL Creatinine 0.81 MG/DL Estimat Glomerular Filtration 69 ML/MIN Rate Random Glucose 216 MG/DL Calcium Level 8.9 MG/DL Total Bilirubin 0.7 MG/DL Aspartate Amino Transf 73 U/L (AST/SGOT) Alanine Aminotransferase 64 U/L (ALT/SGPT) Alkaline Phosphatase 81 U/L Total Protein 7.4 GM/DL Albumin 3.7 GM/DL [facility] Medical Decision Making Medical Screen Exam Complete: Yes Emergency Medical Condition: Yes Medical Record Reviewed: Yes Differential Diagnosis Differential includes UTI, exacerbation of back pain, gastroenteritis Narrative Course Hemoglobin is 14 with a white count of 15,000. She has 75 polys and [address] scan of the back was obtained and shows spinal stenosis and extensive degenerative changes. Urinalysis negative for infection. Patient is complaining of considerable back pain. She does live alone at present. Etiology of her leukocytosis is not clear. She is not coughing and any skin lesions. She has been given repeated doses of pain medications and is complaining of ongoing pain. Diagnosis Primary Impression: Intractable back pain Additional Impression: Leukocytosis Qualified Code: D72.829 - Leukocytosis, unspecified type Jamel Tobar MD Jan 24, 2017 18:04
[2017-01-24 19:15] VITALS: BP 106/61; PULSE 78; RESP 18; O2SAT 98
[2017-01-24] MEDS ORDERED: DEXTROSE 50% IN WATER 50 ML VIAL(D50) IV PRN (19:15)
[2017-01-24] MEDS ORDERED: ONDANSETRON HCL 4 MG/2 ML VIAL IVP PRN (19:15)
[2017-01-24] MEDS ORDERED: BISACODYL 10 MG SUPP RECTAL PRN (19:15)
[2017-01-24] MEDS ORDERED: SODIUM CHLORIDE 0.9% FLUSH 10 ML FLUSH IV FLUSH PRN (19:15)
[2017-01-24] MEDS ORDERED: NALOXONE HCL 0.4 MG/ML AMP IV PRN (19:15)
[2017-01-24] MEDS ORDERED: GLUCAGON 1 MG/ML VIAL OTHER PRN (19:15)
[2017-01-24] MEDS ORDERED: MAGNESIUM HYDROXIDE SUSP 30 ML CUP PO PRN (19:15)
[2017-01-24] MEDS ORDERED: SENNOSIDES 8.6 MG TAB PO PRN (19:15)
[2017-01-24] MEDS ORDERED: LACTULOSE SYRUP 20 GM/30 ML CUP PO PRN (19:15)
[2017-01-24] MEDS: SODIUM CHLOR 0.45% 1000 ML INJ 1,000 ML IV SCH (19:22)
[2017-01-24 20:50] VITALS: BP 101/63; PULSE 84; RESP 18; TEMP 101.1; O2SAT 90
[2017-01-24] MEDS: INSULIN ASPART SUPPLEMENTAL SCALE SQ SCH (21:00)
[2017-01-24] MEDS ORDERED: LORazepam 2 MG/ML VIAL IV ONE (21:00)
[2017-01-24] MEDS: HEPARIN SODIUM - SQ 10,000 UNITS/ML VIAL SQ SCH (21:24)
[2017-01-24] MEDS: DOCUSATE SODIUM 50 MG/SENNA 8.6 MG TAB PO SCH (21:25)
[2017-01-24] MEDS: ATORVASTATIN 40 MG TAB PO SCH (21:25)
[2017-01-24] MEDS: SODIUM CHLORIDE 0.9% FLUSH 10 ML FLUSH IV FLUSH SCH (21:25)
[2017-01-24] MEDS ORDERED: GADODIAMIDE PF 287 MG/ML 5 ML VIAL (for RAD MRI) IV ONE (22:04)
--- NOTE | 2017-01-24 22:25 | RADRPT ---
EXAM DATE/TIME: 01/24/2017 21:46 [facility] COMPARISON: No previous studies available for comparison. INDICATIONS : Mid back pain radiating down both leg. CONTRAST: 14 cc Omniscan (gadodiamide) IV MEDICAL HISTORY : Diabetes mellitus type 2. SURGICAL HISTORY : Cholecystectomy. Hysterectomy. Appendectomy. bowel resection, rt knee replacment ENCOUNTER: Subsequent ACUITY: 3 day PAIN SCORE: 3/10 LOCATION: middle back TECHNIQUE: Multiplanar multisequence MRI of the lumbar spine was performed with and without contrast. Moderate motion artifact is present. FINDINGS: Extensive motion artifact is present. There is good preservation of vertebral body heights. There i s no obvious compression fracture. The conus is unremarkable. There is as small disc protrusion centrally at L5-S1 slightly eccentric to the right. There mild deg enerative changes in the facets. I do not see as well as abscess or discitis. There is no abnormal contrast-enhancement. CONCLUSION: Extensive motion artifact without significant disc herniation, or discitis. Siva Nice MD FACR on January 24, 2017 at 22:22 Board Certified Radiologist. This report was verified electronically.
[2017-01-25] MEDS: ACETAMINOPHEN 325 MG TAB PO PRN (00:06)
[2017-01-25] MEDS: SODIUM CHLOR 0.45% 1000 ML INJ 1,000 ML IV SCH ×2 (00:07→13:39)
[2017-01-25] MEDS: HYDROmorphone HCL PF 1 MG/ML VIAL IV PRN ×5 (00:07→21:29)
--- NOTE | 2017-01-25 00:15 | RADRPT ---
EXAM DATE/TIME: 01/24/2017 23:42 [facility] COMPARISON: CHEST PA & LAT, November 07, 2016, 10:10. INDICATIONS : Fever MEDICAL HISTORY : Diabetes mellitus type II. Atrial Fibrilation. SURGICAL HISTORY : None. ENCOUNTER: Initial ACUITY: 1 day PAIN SCORE: 0/10 LOCATION: Bilateral chest FINDINGS: A single view of the chest demonstrates lungs to be hypoinflated and patient is slightly rotated righ tward which distorts the mediastinal structures. Otherwise, minimal bibasilar atelectatic changes wit h no confluent infiltrate. Accounting for low lung volumes, the heart size is normal. Osseous structu res are intact with some degenerative spurring of the dorsal spine. CONCLUSION: 1. Hypoinflation with mild bibasilar atelectatic changes. 2. No confluent infiltrate. Matt Francisco MD on January 25, 2017 at 0:10 Board Certified Radiologist. This report was verified electronically.
[2017-01-25 01:13] VITALS: BP 112/71; PULSE 80; RESP 16; TEMP 100; O2SAT 92
[2017-01-25] MEDS: GLIMEPIRIDE 4 MG TAB PO SCH ×2 (06:26→15:53)
[2017-01-25] MEDS: LEVOTHYROXINE SODIUM 25 MCG TAB PO SCH (06:28)
[2017-01-25] MEDS: INSULIN ASPART SUPPLEMENTAL SCALE SQ SCH ×4 (06:28→21:00)
[2017-01-25 06:43] LABS: POTASSIUM 3.9 MEQ/L (3.5-5.1)
[2017-01-25 06:45] LABS: AUTOMATED NEUTROPHIL # 12.8 TH/MM3 (1.8-7.7); BASOPHIL % 0.2 % (0.0-2.0); EOSINOPHIL # 0.1 TH/MM3 (0-0.4); EOSINOPHIL % 0.5 % (0.0-4.0); HEMATOCRIT 40.7 % (35.0-46.0); LYMPH % 8.8 % (9.0-44.0); LYMPHOCYTE # 1.3 TH/MM3 (1.0-4.8); MEAN CELL VOLUME 80.6 FL (80.0-100.0); MEAN CORPUSCULAR HGB CONC 32.2 % (32.0-36.0); MONO % 4.6 % (0.0-8.0); NEUT % 85.9 % (16.0-70.0); PLATELET COUNT 213 TH/MM3 (150-450); RED BLOOD COUNT 5.05 MIL/MM3 (4.00-5.30); RED CELL DISTRIBUTION WIDTH 22.2 % (11.6-17.2); WHITE BLOOD COUNT 14.9 TH/MM3 (4.0-11.0)
[2017-01-25 06:46] LABS: BICARBONATE 29.9 MEQ/L (21.0-32.0)
[2017-01-25 06:58] LABS: HEMO FLAGS DIFF FINAL
[2017-01-25 08:00] VITALS: BP 133/78; PULSE 83; RESP 18; TEMP 99.9; O2SAT 93
[2017-01-25] MEDS: SODIUM CHLORIDE 0.9% FLUSH 10 ML FLUSH IV FLUSH SCH ×2 (09:00→21:29)
[2017-01-25] MEDS: DOCUSATE SODIUM 50 MG/SENNA 8.6 MG TAB PO SCH ×2 (09:10→21:29)
[2017-01-25] MEDS: LOSARTAN 25 MG TAB PO SCH (09:10)
[2017-01-25] MEDS: HEPARIN SODIUM - SQ 10,000 UNITS/ML VIAL SQ SCH ×2 (09:10→21:29)
[2017-01-25] MEDS: PANTOPRAZOLE SOD 20 MG DELAYED RELEASE TAB PO SCH (09:10)
[2017-01-25] MEDS: ASPIRIN 325 MG TAB PO SCH (09:10)
[2017-01-25] MEDS: ACETAMINOPHEN/HYDROcodone 325 MG/7.5 MG TAB PO PRN ×2 (09:11→15:53)
[2017-01-25 12:00] VITALS: BP 128/72; PULSE 81; RESP 18; TEMP 98.8; O2SAT 94
--- NOTE | 2017-01-25 12:39 | HHI.HP ---
HPI Service [facility] Primary Care Physician Daphney Dean M.D. Admission Diagnosis INTRACTABLE BACK PAIN, LEUKOCYTOSIS Diagnoses: Travel History International Travel<30 Days: No Contact w/Intl Traveler <30 Da: No Traveled to Known Affected Are: No History of Present Illness This is a very pleasant 76-year-old female patient of Dr. Green. Patient came into the emergency department [facility]. She has a long history of back pain all her life however this has gotten worse over the last couple of days. She has few days of vomiting. She had some chills the morning of admission. She recently left rehabilitation after knee replacement. She came in by ambulance She was seen this morning by the undersigned in room 8317. She complained to me of severe sore throat and painful swallowing. No documented fever. Of note that the lady had an MRI of the lumbar spine last night which was of poor quality because of motion artifact however that was essentially negative otherwise. Review of Systems Other 10 systems reviewed and otherwise negative Past Family Social History Past Medical History Diabetes Hypothyroidism Barter syndrome Atrial fibrillation Sleep apnea Bowel obstruction Peptic ulcer disease Cholecystitis Hiatal hernia appendicitis Arthritis Depression Anxiety fibromyalgia Anemia Transfusion Past Surgical History Colectomy after bowel obstruction Cholecystectomy Hysterectomy Right total knee replacement Reported Medications Reported Meds & Active Scripts Active Aspirin 325 Mg Tab 325 Mg PO DAILY Start Aspirin after Lovenox is completed. Reported Omeprazole 20 Mg Tab 20 Mg PO DAILY Losartan (Losartan Potassium) 25 Mg Tab 25 Mg PO DAILY Glimepiride 4 Mg Tab 4 Mg PO BIDAC Lipitor (Atorvastatin Calcium) 40 Mg Tab 40 Mg PO HS Levothyroxine (Levothyroxine Sodium) 25 Mcg Tab 25 Mcg PO DAILY Jentadueto (Linagliptin-Metformin) 2.5-1,000 Mg Tab 1 Tab PO BID Allergies: Coded Allergies: Ants (Verified Allergy, Severe, Anaphylaxis, 01/24/17) Benadryl (Verified Allergy, Severe, Anaphylaxis, 01/24/17) Dextrose (Verified Allergy, Severe, Anaphylaxis, 01/24/17) Iodine (Verified Allergy, Mild, Nausea/Vomiting, 01/24/17) STATES SHE RECENTLY HAD IT AND SHE WAS FINE Penicillin (Verified Allergy, Mild, Hives, 01/24/17) Uncoded Allergies: DIOXILLIN (Allergy, Mild, Hives, 10/01/06) ORAL PAIN MEDS (Allergy, Mild, Hives, 10/01/06) SOME ANITBIOTICS (Allergy, Mild, 10/01/06) Family History Reviewed but not contributory Social History No smoking, no excessive alcohol, no illicit drug use, she is a Physical Exam Vital Signs Vital Signs Date Time Temp Pulse Resp B/P Pulse Ox O2 Delivery O2 Flow Rate FiO2 01/25/17 08:00 99.9 83 18 133/78 93 01/25/17 01:13 100.0 80 16 112/71 92 01/24/17 20:50 101.1 84 18 101/63 90 01/24/17 20:11 74 18 98 01/24/17 19:15 78 18 106/61 98 Room Air 01/24/17 17:20 16 01/24/17 17:20 85 16 111/57 100 Room Air 01/24/17 15:18 98.1 90 18 127/64 100 Physical Exam GENERAL: This is a well-nourished, well-developed patient, anxious but otherwise in no apparent distress. She is hoarse SKIN: No rashes, ecchymoses or lesions. Cool and dry. HEAD: Atraumatic. Normocephalic. No temporal or scalp tenderness. EYES: Pupils equal round and reactive. Extraocular motions intact. No scleral icterus. No injection or drainage. ENT: Throat exam shows erythema a thin exudate NECK: Trachea midline. No JVD or lymphadenopathy. Supple, nontender, no meningeal signs. CARDIOVASCULAR: Regular rate and rhythm without murmurs, gallops, or rubs. RESPIRATORY: Right sided wheezes and crackles . GASTROINTESTINAL: Abdomen soft, non-tender, nondistended. No hepato-splenomegaly , or palpable masses. No guarding. MUSCULOSKELETAL: Extremities without clubbing, cyanosis, or edema. No joint tenderness, effusion, or edema noted. No calf tenderness. Negative Homans sign bilaterally. NEUROLOGICAL: Awake and alert. Cranial nerves II through XII intact. Normal speech. Laboratory Laboratory Tests Test 01/24/17 01/24/17 01/25/17 01/25/17 16:20 16:30 05:53 08:15 Urine Color STRAW Urine Turbidity CLEAR Urine pH 7.0 Urine Specific [place] 1.009 Urine Protein NEG Urine Glucose (UA) 500 Urine Ketones TRACE Urine Occult Blood TRACE Urine Nitrite NEG Urine Bilirubin NEG Urine Leukocyte Esterase NEG Urine RBC 0-3 Urine WBC 0-2 Urine Squamous Epithelial 0-5 Cells Microscopic Urinalysis Comment CULT NOT INDICATED White Blood Count 15.1 14.9 Red Blood Count 5.50 5.05 Hemoglobin 14.1 13.1 Hematocrit 43.5 40.7 Mean Corpuscular Volume 79.1 80.6 Mean Corpuscular Hemoglobin 25.6 26.0 Mean Corpuscular Hemoglobin 32.4 32.2 Concent Red Cell Distribution Width 22.4 22.2 Platelet Count 232 213 Mean Platelet Volume 8.6 9.0 Neutrophils (%) (Auto) 85.7 85.9 Lymphocytes (%) (Auto) 5.8 8.8 Monocytes (%) (Auto) 4.4 4.6 Eosinophils (%) (Auto) 0.4 0.5 Basophils (%) (Auto) 3.7 0.2 Neutrophils # (Auto) 12.8 12.8 Lymphocytes # (Auto) 0.9 1.3 Monocytes # (Auto) 0.7 0.7 Eosinophils # (Auto) 0.1 0.1 Basophils # (Auto) 0.6 0.0 CBC Comment AUTO DIFF DIFF FINAL Differential Total Cells 100 Counted Neutrophils % (Manual) 75 Band Neutrophils % 5 Lymphocytes % 10 Monocytes % 6 Eosinophils % 2 Basophils % 2 Neutrophils # (Manual) 12.1 Differential Comment FINAL DIFF MANUAL Platelet Estimate NORMAL Platelet Morphology Comment NORMAL Erythrocyte Sedimentation Rate 2 Sodium Level 138 139 Potassium Level 3.9 3.9 Chloride Level 101 101 Carbon Dioxide Level 27.9 29.9 Anion Gap 9 8 Blood Urea Nitrogen 13 13 Creatinine 0.81 0.74 Estimat Glomerular Filtration 69 77 Rate Random Glucose 216 129 Calcium Level 8.9 8.5 Total Bilirubin 0.7 Aspartate Amino Transf 73 (AST/SGOT) Alanine Aminotransferase 64 (ALT/SGPT) Alkaline Phosphatase 81 C-Reactive Protein 8.70 Total Protein 7.4 Albumin 3.7 Lactic Acid Level 1.1 Date/Time Procedure Status Source Growth 01/24/17 00:55 Aerobic Blood Culture Received Blood Peripheral Pending 01/24/17 00:55 Anaerobic Blood Culture Received Blood Peripheral Pending Result Diagram: 01/25/17 0553 01/25/17 0553 Imaging Last Impressions Lumbar Spine CT 01/24/17 1613 Signed Impressions: Service Date/Time: Tuesday, January 24, 2017 16:41 - CONCLUSION: 1. There is moderate spinal canal stenosis at L4-5 and L5-S1. 2. There is mild spinal canal stenosis at L3-4. 3. There are bony degenerative changes involving the lumbar spine with disc degeneration and disc space narrowing at L5-S1. 4. There is bilateral facet arthritis at multiple levels. Riki Potts MD Lumbar Spine MRI 01/24/17 0000 Signed Impressions: Service Date/Time: Tuesday, January 24, 2017 21:46 - CONCLUSION: Extensive motion artifact without significant disc herniation, or discitis. Siva Nice MD FACR Chest X-Ray 01/24/17 0000 Signed Impressions: Service Date/Time: Tuesday, January 24, 2017 23:42 - CONCLUSION: 1. Hypoinflation with mild bibasilar atelectatic changes. 2. No confluent infiltrate. Matt Francisco MD Assessment and Plan Assessment and Plan Assessment Pharyngitis Leukocytosis Right sided crackles with clear chest x-ray yesterday Severe back pain that is chronic but worse than baseline Elevated CRP with normal sedimentation rate Anxiety Management Start Levaquin 500 milligrams IV daily Repeat chest x-ray PA and lateral Throat swab to rule out strep throat Influenza antigen Pain control Resume home medications Accu-Cheks before meals and at bedtime Sliding scale DVT prophylaxis Discussed with patient Discussed with nurse Discussed with emergency physician 45 minutes spent Danilo Zuniga MD Jan 25, 2017 12:39
[2017-01-25] MEDS: LEVOFLOXACIN 500 MG PREMIX INJ 100 ML IV SCH (13:39)
--- NOTE | 2017-01-25 13:39 | RADRPT ---
EXAM DATE/TIME: 01/25/2017 13:19 [facility] COMPARISON: CHEST SINGLE AP, January 24, 2017, 23:42. CHEST PA & LAT, November 07, 2016, 10:10. INDICATIONS : Fever, cough, short of breath MEDICAL HISTORY : Diabetes mellitus type II. SURGICAL HISTORY : None. ENCOUNTER: Subsequent ACUITY: 2 days PAIN SCORE: 0/10 LOCATION: Bilateral chest FINDINGS: PA and lateral views of the chest demonstrate overall poor inspiratory effort. There continues to be prominence of the lungs likely pulmonary vascular congestion.. The cardiomediastinal contours are un remarkable. Osseous structures are intact. CONCLUSION: Pulmonary vascular congestion with poor inspiratory effort. Frank Hubbard MD on January 25, 2017 at 13:36 Board Certified Radiologist. This report was verified electronically.
[2017-01-25 16:00] VITALS: BP 116/77; PULSE 83; RESP 17; TEMP 99.1; O2SAT 98
[2017-01-25 20:25] VITALS: BP 98/63; PULSE 81; RESP 14; TEMP 100.6; O2SAT 90
[2017-01-25] MEDS: CYCLOBENZAPRINE HCL 10 MG TAB PO PRN (21:29)
[2017-01-25] MEDS: ATORVASTATIN 40 MG TAB PO SCH (21:29)
[2017-01-26] MEDS: ACETAMINOPHEN 325 MG TAB PO PRN (00:18)
[2017-01-26 00:42] VITALS: BP 97/60; PULSE 90; RESP 12; TEMP 102.3; O2SAT 91
[2017-01-26] MEDS: LEVOTHYROXINE SODIUM 25 MCG TAB PO SCH (05:59)
[2017-01-26] MEDS: GLIMEPIRIDE 4 MG TAB PO SCH ×2 (05:59→16:00)
[2017-01-26] MEDS: INSULIN ASPART SUPPLEMENTAL SCALE SQ SCH ×4 (06:01→20:22)
[2017-01-26 06:51] LABS: AUTOMATED NEUTROPHIL # 11.6 TH/MM3 (1.8-7.7); BASOPHIL % 0.2 % (0.0-2.0); EOSINOPHIL # 0.1 TH/MM3 (0-0.4); EOSINOPHIL % 0.5 % (0.0-4.0); HEMATOCRIT 38.8 % (35.0-46.0); LYMPH % 7.9 % (9.0-44.0); LYMPHOCYTE # 1.1 TH/MM3 (1.0-4.8); MEAN CELL VOLUME 80.7 FL (80.0-100.0); MEAN CORPUSCULAR HEMOGLOBIN 26.4 PG (27.0-34.0); MEAN CORPUSCULAR HGB CONC 32.7 % (32.0-36.0); MONO % 5.8 % (0.0-8.0); NEUT % 85.6 % (16.0-70.0); PLATELET COUNT 190 TH/MM3 (150-450); RED BLOOD COUNT 4.81 MIL/MM3 (4.00-5.30); RED CELL DISTRIBUTION WIDTH 22.5 % (11.6-17.2); WHITE BLOOD COUNT 13.6 TH/MM3 (4.0-11.0)
[2017-01-26 06:55] LABS: POTASSIUM 3.3 MEQ/L (3.5-5.1)
[2017-01-26 06:57] LABS: HEMO FLAGS DIFF FINAL
[2017-01-26 06:58] LABS: BICARBONATE 29.9 MEQ/L (21.0-32.0)
[2017-01-26 08:00] VITALS: BP 126/69; PULSE 84; RESP 17; TEMP 99.1; O2SAT 92
[2017-01-26] MEDS: HEPARIN SODIUM - SQ 10,000 UNITS/ML VIAL SQ SCH ×2 (08:49→20:21)
[2017-01-26] MEDS: DOCUSATE SODIUM 50 MG/SENNA 8.6 MG TAB PO SCH ×2 (08:49→20:21)
[2017-01-26] MEDS: PANTOPRAZOLE SOD 20 MG DELAYED RELEASE TAB PO SCH (08:49)
[2017-01-26] MEDS: LOSARTAN 25 MG TAB PO SCH (08:49)
[2017-01-26] MEDS: ASPIRIN 325 MG TAB PO SCH (08:49)
[2017-01-26] MEDS: SODIUM CHLORIDE 0.9% FLUSH 10 ML FLUSH IV FLUSH SCH ×2 (08:50→20:22)
[2017-01-26] MEDS: ACETAMINOPHEN/HYDROcodone 325 MG/7.5 MG TAB PO PRN ×2 (08:56→18:50)
[2017-01-26 12:00] VITALS: BP 120/72; PULSE 80; RESP 19; TEMP 98.8; O2SAT 94
[2017-01-26] MEDS: LEVOFLOXACIN 500 MG PREMIX INJ 100 ML IV SCH (12:45)
[2017-01-26] MEDS: HYDROmorphone HCL PF 1 MG/ML VIAL IV PRN ×2 (14:18→20:23)
[2017-01-26 16:00] VITALS: BP 129/75; PULSE 77; RESP 18; TEMP 98.1; O2SAT 95
[2017-01-26] MEDS ORDERED: POTASSIUM CHLORIDE 10 MEQ CONTROLLED RELEASE TAB PO ONE (17:45)
[2017-01-26] MEDS: NYSTATIN SUSP 500,000 U/5 ML CUP SWISH-SWAL SCH ×2 (17:56→20:23)
[2017-01-26 18:51] VITALS: TEMP 100.2
--- NOTE | 2017-01-26 19:17 | HHI.PR ---
Subjective Interval History Alert, oriented, very anxious, complaining of back pain,not eating much Review of Systems Constitutional Constitutional Remarks Back pain, poor appetite, low-grade fever, 10 systems reviewed otherwise negative Vitals/Results Intake & Output 01/25/17 01/25/17 01/26/17 15:00 23:00 07:00 Intake Total 520 ml Balance 520 ml Intake Oral 520 ml IV Total 0 ml # Voids 6 Vital Signs Vital Signs Date Time Temp Pulse Resp B/P Pulse Ox O2 Delivery O2 Flow Rate FiO2 01/26/17 18:51 100.2 01/26/17 16:00 98.1 77 18 129/75 95 01/26/17 12:00 98.8 80 19 120/72 94 01/26/17 08:00 99.1 84 17 126/69 92 01/26/17 00:42 102.3 90 12 97/60 91 01/25/17 21:59 18 01/25/17 20:25 100.6 81 14 98/63 90 CBC/BMP: 01/26/17 0630 01/26/17 0630 Lab Results Laboratory Tests Test 01/26/17 06:30 White Blood Count 13.6 TH/MM3 Red Blood Count 4.81 MIL/MM3 Hemoglobin 12.7 GM/DL Hematocrit 38.8 % Mean Corpuscular Volume 80.7 FL Mean Corpuscular Hemoglobin 26.4 PG Mean Corpuscular Hemoglobin 32.7 % Concent Red Cell Distribution Width 22.5 % Platelet Count 190 TH/MM3 Mean Platelet Volume 8.4 FL Neutrophils (%) (Auto) 85.6 % Lymphocytes (%) (Auto) 7.9 % Monocytes (%) (Auto) 5.8 % Eosinophils (%) (Auto) 0.5 % Basophils (%) (Auto) 0.2 % Neutrophils # (Auto) 11.6 TH/MM3 Lymphocytes # (Auto) 1.1 TH/MM3 Monocytes # (Auto) 0.8 TH/MM3 Eosinophils # (Auto) 0.1 TH/MM3 Basophils # (Auto) 0.0 TH/MM3 CBC Comment DIFF FINAL Differential Comment Sodium Level 139 MEQ/L Potassium Level 3.3 MEQ/L Chloride Level 103 MEQ/L Carbon Dioxide Level 29.9 MEQ/L Anion Gap 6 MEQ/L Blood Urea Nitrogen 10 MG/DL Creatinine 0.66 MG/DL Estimat Glomerular Filtration 88 ML/MIN Rate Random Glucose 72 MG/DL Calcium Level 8.8 MG/DL Physical Exam General General Appearance: Well Developed, Anxious Eyes Eye Exam: Pupils Reactive Ears & Nose Ears & Nose Exam: Nasal Mucosa [place] Throat Throat Exam: Oral Mucosa [place] & Moist Neck Neck Exam: Trachea Midline Pulmonary Resp Exam: Breath Sounds Equal, Crackles Cardiology CV Exam: Normal Sinus Rhythm Gastrointestinal/Abdomen GI Exam: Non-Tender, Bowel Sounds Present Musculoskeletal MS Exam: Normal Tone Integumentary Skin Exam: Warm, Dry Neurologic Neuro Exam: Alert, Awake, Oriented, Speech Clear, Moving All Extremities, Ruby On Rails Engineer Equal, No Focal Deficits Psychiatric Psych Exam: Appropriate Responses VTE Prophylaxis VTE Prophylaxis Meds: Heparin Assessment/Plan Assessment/Plan Assessment Pharyngitis Leukocytosis Right sided crackles with clear chest x-ray yesterday Severe back pain that is chronic but worse than baseline Mild swelling right knee, she had her right knee replaced few weeks ago, sees Dr. Rodriguez Anxiety Management Continue Levaquin 500 milligrams IV daily X-ray right knee, rule out effusion Consult infectious disease specialist Pain control May need abdomen/pelvis CT if no other H Ali found Repeat urinalysis Accu-Cheks before meals and at bedtime Sliding scale DVT prophylaxis Discussed with patient Discussed with nurse Discussed with patient's daughter 35 minutes spent Danilo Zuniga MD Jan 26, 2017 19:17
[2017-01-26] MEDS: ATORVASTATIN 40 MG TAB PO SCH (20:21)
[2017-01-26] MEDS: FLUCONAZOLE 200 MG PREMIX BAG 100 ML IV SCH (20:21)
[2017-01-26 20:51] VITALS: BP 161/83; PULSE 86; RESP 16; TEMP 99.9; O2SAT 94
--- NOTE | 2017-01-26 21:06 | MB ---
cc: EVERETT JUNIOR MD DATE OF CONSULTATION 01/26/[address] Zuniga. REASON FOR CONSULTATION Fever, leukocytosis, generalized weakness. No clear etiology. HISTORY OF PRESENT ILLNESS This is a 76-year-old white female who presented to emergency department on 01/24 with back pain. The patient states that she developed sudden back pain the day prior and she could not tolerate it and therefore she was brought to the emergency department for evaluation. She noted that the back pain is diffuse over the lower back and radiates to the buttock and also down both legs. She states that she had nausea but denies vomiting to me. She took oxybutynin which she had following knee replacement in November 2016 at home but that did not lead to improvement. The patient was undergoing rehab therapy following knee surgery which she had in November. The surgery was on November 20 and subsequent to that she was having rehab on the knee. She denies any trauma to the back. When she presented to the emergency department her temperature was 98.1. However, her white blood cell count was elevated at 15.1. Her temperature robson to 101 degrees yesterday evening and early this morning to 102.3. Blood cultures are pending. Urinalysis was unremarkable. An MRI of the lumbar spine was performed but there was extensive motion artifact. Lumbar spine CT showed moderate spinal canal stenosis at L4-L5 and L5-S1. There was also bony degenerative changes involving the lumbar spine and disc space narrowing at the L5-S1. The patient denies incontinence. She denies burning on urination. She denies chills. Her sedimentation rate is normal but the C-reactive protein is elevated. The patient states that she has a slight headache. She is currently in distress because of the pain in the lower back. PAST MEDICAL HISTORY 1. Atrial fibrillation. 2. Hypothyroidism. 3. Diabetes mellitus. 4. Barrters syndrome. 5. Peptic ulcer disease. 6. Arthritis. 7. Depression. 8. Anxiety. 9. Fibromyalgia. 10. Anemia. 11. History of cholecystectomy. 12. History of colectomy following bowel obstruction. 13. Hysterectomy. 14. Total knee replacement on 11/20/2016. ALLERGIES PENICILLIN, BENADRYL, DIOXILLIN, ORAL PAIN MEDICATIONS, IODINE. MEDICATIONS 1. Levaquin. 2. Fluconazole. 3. Flexeril. 4. Aspirin. 5. Protonix. 6. Cozaar. 7. Amaryl. 8. Synthroid. 9. Dilaudid. 10. [place] 7.5 p.r.n. 11. Avis-Colace. 12. Lipitor. 13. Zofran p.r.n. SOCIAL HISTORY No tobacco. Occasional alcohol. No illicit drugs. FAMILY HISTORY Noncontributory. REVIEW OF SYSTEMS Pertinents mentioned in the history of present illness. Occasional constipation and severe back pain, otherwise negative on 10-point review. PHYSICAL EXAMINATION GENERAL: This is a well-developed female in no acute distress. She is awake and alert and oriented. VITAL SIGNS: Temperature 100.2, BP 129/75, respirations 18, heart rate 77. HEENT: Head is atraumatic. Extraocular movements appear grossly intact, pupils reactive to light without icterus. Oropharynx no visible lesions. Mucosa is moist. NECK: Supple without adenopathy. LUNGS: Clear breath sounds which are diminished bilaterally. HEART: Regular rate and rhythm without murmurs, rubs or gallops. ABDOMEN: Bowel sounds present, soft, no tenderness appreciated. BACK: Tenderness on palpation at the left side of the spine and lumbar region at around L4 and L5. No visible erythema at that location. RECTAL: Not performed. EXTREMITIES: No clubbing or cyanosis or edema. The right knee surgical incision is well-healed. There is no erythema or increased warmth at the right knee and no significant swelling. Distal pulses are intact. SKIN: No rash. NEUROLOGIC: No gross focal findings. PSYCHIATRIC: The patient is calm and cooperative. LABORATORY DATA Creatinine 0.66, BUN 10, estimated GFR 88, sodium 139. WBC 13.6, platelets 190, 85% neutrophils, 7% lymphocytes, hemoglobin 12.7. IMAGING Chest x-ray showed pulmonary vascular congestion. IMPRESSION 1. Intractable back pain, questionable etiology. The patient is noted to have spinal canal stenosis at L4-L5 and L5-S1. No evidence of discitis. 2. Fever. 3. Abnormal chest x-ray in light of fever and leukocytosis. Possible pulmonary infection. However, the patient does not have much in the way of respiratory symptoms and this may very well just be congestive heart failure. 4. Possible sepsis with fever and leukocytosis. I do not see a clear etiology of the patient's fever and white count at this time. RECOMMENDATIONS 1. Continue Levaquin. 2. Continue Diflucan. 3. Monitor the blood cultures. 4. Monitor temperature. 5. Monitor white blood cell count. 6. Follow the back pain and if it continues we may want to consider further studies such as a gallium scan. 7. Monitor clinical status. Thank you this consultation. I will follow the patient's progress and will make further recommendations on followup if necessary. Everett Junior MD FD/KK /8:19 PM /8:46 PM MTDVon
--- NOTE | 2017-01-26 21:10 | RADRPT ---
EXAM DATE/TIME: 01/26/2017 21:01 [facility] COMPARISON: KNEE RIGHT LTD (1 OR 2 VWS), November 20, 2016, 12:40. INDICATIONS : Right knee swelling. MEDICAL HISTORY : None. SURGICAL HISTORY : Total knee replacement, right. ENCOUNTER: Initial ACUITY: 1 day PAIN SCORE: 4/10 LOCATION: Right knee. FINDINGS: Status post arthroplasty. The femoral and tibial components are intact and in normal alignment. There are postoperative changes involving the patella. There is no acute fracture or loosening. There is m ild anterior soft tissue prominence. CONCLUSION: Mild anterior soft tissue prominence with no underlying bony abnormalities status pos t arthroplasty. Honorio Helms MD on January 26, 2017 at 21:08 Board Certified Radiologist. This report was verified electronically.
[2017-01-27 00:30] VITALS: BP 108/62; PULSE 70; RESP 18; TEMP 98.1; O2SAT 97
[2017-01-27 01:10] LABS: BLOOD, URINE TRACE (NEG); GLUCOSE,URINE NEG (NEG); KETONE, URINE NEG (NEG); NITRITE,URINE NEG (NEG)
[2017-01-27 01:41] LABS: MUCUS URINE MOD /lpf (OCC); URINE COLOR YELLOW (YELLW/STRAW)
[2017-01-27 01:42] LABS: WBC, URINE 100-200 /hpf (0-5)
[2017-01-27 01:43] LABS: BACTERIA, URINE FEW /hpf
[2017-01-27 01:44] LABS: COMMENT (UR) CULTURE INDICATED; CULTURE IF INDICATED CULTURE INDICATED
[2017-01-27] MEDS: LEVOTHYROXINE SODIUM 25 MCG TAB PO SCH (05:35)
[2017-01-27] MEDS: GLIMEPIRIDE 4 MG TAB PO SCH ×2 (05:36→16:25)
[2017-01-27] MEDS: INSULIN ASPART SUPPLEMENTAL SCALE SQ SCH ×4 (05:36→21:00)
[2017-01-27 08:00] VITALS: BP 134/76; PULSE 77; RESP 19; TEMP 98.1; O2SAT 92
--- NOTE | 2017-01-27 08:12 | HHI.PR ---
Subjective History of Present Illness Alert, oriented, very anxious, complaining of back pain,not eating much d/w RAJWINDER Eddy. Review of Systems Constitutional Constitutional: Fatigue, Weakness Musculoskeletal MS Remarks back pain. Vitals/Results Intake & Output 01/26/17 01/26/17 01/27/17 15:00 23:00 07:00 Intake Total 114 ml Output Total 600 ml Balance -486 ml IV Total 114 ml Output Urine Total 600 ml # Voids 1 # Bowel Movements 0 Vital Signs Vital Signs Date Time Temp Pulse Resp B/P Pulse Ox O2 Delivery O2 Flow Rate FiO2 01/27/17 04:16 01/27/17 00:30 98.1 70 18 108/62 97 01/26/17 20:51 99.9 86 16 161/83 94 01/26/17 18:51 100.2 01/26/17 16:00 98.1 77 18 129/75 95 01/26/17 12:00 98.8 80 19 120/72 94 CBC/BMP: 01/26/17 0630 01/26/17 0630 Lab Results Laboratory Tests Test 01/27/17 01:03 Urine Color YELLOW Urine Turbidity MOD Urine pH 6.0 Urine Specific [place] 1.015 Urine Protein TRACE mg/dL Urine Glucose (UA) NEG mg/dL Urine Ketones NEG mg/dL Urine Occult Blood TRACE Urine Nitrite NEG Urine Bilirubin NEG Urine Leukocyte Esterase LARGE Urine RBC 4-9 /hpf Urine WBC 100-200 /hpf Urine WBC Clumps FEW Urine Squamous Epithelial 6-8 /hpf Cells Urine Bacteria FEW /hpf Urine Mucus MOD /lpf Microscopic Urinalysis Comment CULTURE INDICATED Microbiology Microbiology 01/27/17 Urine Culture, Received Pending Physical Exam General General Appearance: Well Developed, No Acute Distress, Comfortable, Anxious Eyes Eye Exam: Pupils Reactive, Sclera White, Extraocular Movement Intact Ears & Nose Ears & Nose Exam: Nasal Mucosa [place] Throat Throat Exam: Oral Mucosa [place] & Moist Neck Neck Exam: Neck Supple, Trachea Midline Pulmonary Resp Exam: Breath Sounds Equal, Crackles Cardiology CV Exam: Normal Sinus Rhythm Gastrointestinal/Abdomen GI Exam: Non-Tender, Bowel Sounds Present Musculoskeletal MS Exam: Normal Tone Integumentary Skin Exam: Warm, Dry Neurologic Neuro Exam: Alert, Awake, Oriented, Speech Clear, Moving All Extremities, Press And Blow Machine Tender Equal, No Focal Deficits Psychiatric Psych Exam: Appropriate Responses VTE Prophylaxis VTE Prophylaxis Meds: Heparin Assessment/Plan Assessment/Plan Assessment Pharyngitis throat culture grows timo albican. Leukocytosis.. down trend. Right sided crackles with clear chest x-ray Severe back pain that is chronic but worse than baseline Mild swelling right knee, she had her right knee replaced few weeks ago, sees Dr. Rodriguez Anxiety UTI ..On Antibiotic and diflucan per ID Recommendation. Oral thrush...Nystatin. Hypothyrodism...on Levothyroxine. Hypertension on home medicine Hyperlipidemia..continue home medicine. Management Continue Levaquin 500 milligrams IV daily X-ray right knee,..noted. infectious disease input noted. Pain control Repeated urinalysis Accu-Cheks before meals and at bedtime Sliding scale DVT prophylaxis Discussed with patient Discussed with nurse Discussed Condition with: Patient Richard Holland MD Jan 27, 2017 08:12
[2017-01-27] MEDS: ACETAMINOPHEN/HYDROcodone 325 MG/7.5 MG TAB PO PRN ×2 (08:41→16:57)
[2017-01-27] MEDS: NYSTATIN SUSP 500,000 U/5 ML CUP SWISH-SWAL SCH ×4 (08:44→22:56)
[2017-01-27] MEDS: ASPIRIN 325 MG TAB PO SCH (08:44)
[2017-01-27] MEDS: LOSARTAN 25 MG TAB PO SCH (08:44)
[2017-01-27] MEDS: PANTOPRAZOLE SOD 20 MG DELAYED RELEASE TAB PO SCH (08:44)
[2017-01-27] MEDS: DOCUSATE SODIUM 50 MG/SENNA 8.6 MG TAB PO SCH ×2 (08:44→22:55)
[2017-01-27] MEDS: SODIUM CHLORIDE 0.9% FLUSH 10 ML FLUSH IV FLUSH SCH ×2 (08:45→22:56)
[2017-01-27] MEDS: HEPARIN SODIUM - SQ 10,000 UNITS/ML VIAL SQ SCH ×2 (08:45→22:55)
[2017-01-27] MEDS: HYDROmorphone HCL PF 1 MG/ML VIAL IV PRN ×3 (10:15→22:59)
[2017-01-27 12:00] VITALS: BP 116/71; PULSE 61; RESP 18; TEMP 99.4; O2SAT 99
[2017-01-27] MEDS: LEVOFLOXACIN 500 MG PREMIX INJ 100 ML IV SCH (12:25)
[2017-01-27 16:00] VITALS: BP 105/72; PULSE 73; RESP 18; TEMP 98.7; O2SAT 91
--- NOTE | 2017-01-27 17:22 | HHI.IDPN ---
Note Infectious Disease Note Patient notes that she has urinary frequency. Had some pain across the lower abdomen. Has mild flank tenderness. Afebrile. Urine culture pending. Denies chills. Presented to emergency department on 01/24 with back pain. The patient states that she developed sudden back pain in the lower back the day prior and she could not tolerate it and therefore she was brought to the emergency department for evaluation. PAST MEDICAL HISTORY 1. Atrial fibrillation. 2. Hypothyroidism. 3. Diabetes mellitus. 4. Barrters syndrome. 5. Peptic ulcer disease. 6. Arthritis. 7. Depression. 8. Anxiety. 9. Fibromyalgia. 10. Anemia. 11. History of cholecystectomy. 12. History of colectomy following bowel obstruction. 13. Hysterectomy. 14. Total knee replacement on 11/20/2016. ALLERGIES PENICILLIN, BENADRYL, DIOXILLIN, ORAL PAIN MEDICATIONS, IODINE. ANTIBIOTICS: 1. Levaquin. 2. Fluconazole. SOCIAL HISTORY No tobacco. Occasional alcohol. No illicit drugs. OBJECTIVE: Vital Signs Date Time Temp Pulse Resp B/P Pulse Ox O2 Delivery O2 Flow Rate FiO2 01/27/17 16:00 98.7 73 18 105/72 91 01/27/17 12:00 99.4 61 18 116/71 99 01/27/17 10:45 16 01/27/17 10:05 18 01/27/17 08:00 98.1 77 19 134/76 92 01/27/17 04:16 01/27/17 00:30 98.1 70 18 108/62 97 01/26/17 20:51 99.9 86 16 161/83 94 01/26/17 18:51 100.2 01/26/17 01/26/17 01/27/17 15:00 23:00 07:00 Intake Total 114 ml Output Total 600 ml Balance -486 ml IV Total 114 ml Output Urine Total 600 ml # Voids 1 # Bowel Movements 0 Laboratory Tests Test 01/26/17 06:30 White Blood Count 13.6 TH/MM3 Red Blood Count 4.81 MIL/MM3 Hemoglobin 12.7 GM/DL Hematocrit 38.8 % Mean Corpuscular Volume 80.7 FL Mean Corpuscular Hemoglobin 26.4 PG Mean Corpuscular Hemoglobin 32.7 % Concent Red Cell Distribution Width 22.5 % Platelet Count 190 TH/MM3 Mean Platelet Volume 8.4 FL Neutrophils (%) (Auto) 85.6 % Lymphocytes (%) (Auto) 7.9 % Monocytes (%) (Auto) 5.8 % Eosinophils (%) (Auto) 0.5 % Basophils (%) (Auto) 0.2 % Neutrophils # (Auto) 11.6 TH/MM3 Lymphocytes # (Auto) 1.1 TH/MM3 Monocytes # (Auto) 0.8 TH/MM3 Eosinophils # (Auto) 0.1 TH/MM3 Basophils # (Auto) 0.0 TH/MM3 CBC Comment DIFF FINAL Differential Comment Laboratory Tests Test 01/26/17 06:30 Sodium Level 139 MEQ/L Potassium Level 3.3 MEQ/L Chloride Level 103 MEQ/L Carbon Dioxide Level 29.9 MEQ/L Anion Gap 6 MEQ/L Blood Urea Nitrogen 10 MG/DL Creatinine 0.66 MG/DL Estimat Glomerular Filtration 88 ML/MIN Rate Random Glucose 72 MG/DL Calcium Level 8.8 MG/DL Microbiology Date/Time Procedure Status Source Growth 01/25/17 13:50 Influenza Types A,B Antigen (OLEGARIO) - Final Complete Nasal Washing NEGATIVE FOR FLU A AND B ANTIGEN.... 01/25/17 13:50 Throat Culture - Final Complete Throat Dolores Albicans 01/25/17 13:50 Group A Streptococcus Screen (OLEGARIO) - Final Complete Throat 01/27/17 01:03 Urine Culture Received Urine Clean Catch Pending PHYSICAL EXAMINATION GENERAL: This is a well-developed female in no acute distress. She is awake and alert and oriented. HEENT: Head is atraumatic. Extraocular movements appear grossly intact, pupils reactive to light without icterus. Oropharynx no visible lesions. Mucosa is moist. NECK: Supple without adenopathy. LUNGS: Clear breath sounds which are diminished bilaterally. HEART: Regular rate and rhythm without murmurs, rubs or gallops. ABDOMEN: Bowel sounds present, soft, non tender. BACK: mild tenderness at palpation of the left lower back. EXTREMITIES: No clubbing or cyanosis or edema. The right knee surgical incision is well-healed. There is no erythema or increased warmth at the right knee and no significant swelling. Distal pulses are intact. SKIN: No rash. NEUROLOGIC: No gross focal findings. PSYCHIATRIC: The patient is calm and cooperative. IMPRESSION 1. Intractable back pain, questionable etiology. The patient is noted to have spinal canal stenosis at L4-L5 and L5-S1. No evidence of discitis. 2. Fever. Abnormal UA, left lower back tenderness. prob pyelo. 3. Abnormal chest x-ray in light of fever and leukocytosis. Possible pulmonary infection. However, the patient does not have much in the way of respiratory symptoms and this may very well just be congestive heart failure. 4. Possible sepsis with fever and leukocytosis. RECOMMENDATIONS 1. Continue Levaquin. 2. Continue Diflucan. 3. Monitor the urine cultures. 4. CT scan of the abdomen to look for source of infection/hydronephrosis. 5. Monitor temperature. 6. Monitor white blood cell count. 7. Monitor clinical status. Dave Anne MD Jan 27, 2017 17:22
[2017-01-27] MEDS ORDERED: DIATRIZOATE MEGLUM/DIATRIZOATE SOD 9 ML CUP PO ONE (18:15)
[2017-01-27 20:00] VITALS: BP 150/86; PULSE 66; RESP 20; TEMP 96.7; O2SAT 94
--- NOTE | 2017-01-27 21:52 | RADRPT ---
EXAM DATE/TIME: 01/27/2017 21:15 [facility] COMPARISON: No previous studies available for comparison. INDICATIONS : Afebrile. Urinary frequency. Lower abdomen and back pain. ORAL CONTRAST: Prescribed oral contrast ingested. RADIATION DOSE: 11.73 CTDIvol (mGy) MEDICAL HISTORY : Diabetes mellitus type 2. Bartters syndrome. SURGICAL HISTORY : Colon resection. Cholecystectomy.Appendectomy.Hysterectomy. ENCOUNTER: Initial ACUITY: 3 days PAIN SCALE: 5/10 LOCATION: Bilateral lower quadrant TECHNIQUE: Volumetric scanning of the abdomen and pelvis was performed. Using automated exposure control and ad justment of the mA and/or kV according to patient size, radiation dose was kept as low as reasonably achievable to obtain optimal diagnostic quality images. DICOM format image data is available electro nically for review and comparison. FINDINGS: LOWER LUNGS: Minimal parenchymal changes are present in both lung base is worse on the left than the right. LIVER: Homogeneous density without lesion. There is no dilation of the biliary tree. SPLEEN: Normal size without lesion. PANCREAS: Normal without calcifications. ADRENAL GLANDS: Within normal limits.. KIDNEYS: Normal in size and shape. There is no mass, stone or hydronephrosis. CECUM: There are no inflammatory changes BOWEL/MESENTERY: The stomach, small bowel, and colon demonstrate no acute abnormality. There is no free intraperitone al air or fluid. ABDOMINAL WALL: Within normal limits. RETROPERITONEUM: There is no lymphadenopathy. PELVIS: Status post hysterectomy without mass or fluid. INGUINAL: There is no lymphadenopathy or hernia. MUSCULOSKELETAL: Hemangioma in the L4 vertebral body. CONCLUSION: Minimal nonspecific findings. Degenerative changes in the lumbar spine. There is no evidence for an abscess. Siva Nice MD FACR on January 27, 2017 at 21:48 Board Certified Radiologist. This report was verified electronically.
[2017-01-27] MEDS: CYCLOBENZAPRINE HCL 10 MG TAB PO PRN (22:55)
[2017-01-27] MEDS: ATORVASTATIN 40 MG TAB PO SCH (22:56)
[2017-01-27] MEDS: FLUCONAZOLE 200 MG PREMIX BAG 100 ML IV SCH (22:56)
[2017-01-28] VITALS: BP 133/84; PULSE 67; RESP 20; TEMP 97.5; O2SAT 93
[2017-01-28 04:00] VITALS: BP 125/76; PULSE 62; RESP 20; TEMP 97.2; O2SAT 95
[2017-01-28] MEDS: LEVOTHYROXINE SODIUM 25 MCG TAB PO SCH (05:55)
[2017-01-28] MEDS: INSULIN ASPART SUPPLEMENTAL SCALE SQ SCH ×4 (05:57→20:35)
[2017-01-28] MEDS: GLIMEPIRIDE 4 MG TAB PO SCH ×2 (05:57→16:00)
[2017-01-28] MEDS: HYDROmorphone HCL PF 1 MG/ML VIAL IV PRN ×3 (07:10→19:58)
[2017-01-28] MEDS: SODIUM CHLORIDE 0.9% FLUSH 10 ML FLUSH IV FLUSH SCH ×2 (07:12→20:03)
[2017-01-28 08:00] VITALS: BP 135/88; PULSE 69; RESP 20; TEMP 98; O2SAT 92
--- NOTE | 2017-01-28 08:32 | HHI.PR ---
Subjective History of Present Illness Alert, oriented, very anxious, complaining of back pain,not eating much d/w RAJWINDER Ho at bed side. Review of Systems Constitutional Constitutional: Fatigue, Weakness Musculoskeletal MS Remarks back pain. Vitals/Results Intake & Output 01/27/17 01/27/17 01/28/17 15:00 23:00 07:00 Intake Total 1540 ml 100 ml 0 ml Output Total 650 ml Balance 1540 ml 100 ml -650 ml Intake Oral 1440 ml 0 ml IV Total 100 ml 100 ml Output Urine Total 650 ml # Voids 7 # Bowel Movements 0 1 Vital Signs Vital Signs Date Time Temp Pulse Resp B/P Pulse Ox O2 Delivery O2 Flow Rate FiO2 01/28/17 04:00 Room Air 01/28/17 04:00 97.2 62 20 125/76 95 01/28/17 00:00 97.5 67 20 133/84 93 01/28/17 00:00 Room Air 01/27/17 20:00 Room Air 01/27/17 20:00 96.7 66 20 150/86 94 01/27/17 18:22 16 01/27/17 16:00 98.7 73 18 105/72 91 01/27/17 12:00 99.4 61 18 116/71 99 01/27/17 10:45 16 CBC/BMP: 01/26/17 0630 01/26/17 0630 Lab Results Laboratory Tests Test 01/27/17 19:23 Magnesium Level 1.2 MG/DL Physical Exam General General Appearance: Well Developed, No Acute Distress, Comfortable, Anxious Eyes Eye Exam: Pupils Reactive, Sclera White, Extraocular Movement Intact Ears & Nose Ears & Nose Exam: Nasal Mucosa [place] Throat Throat Exam: Oral Mucosa [place] & Moist Neck Neck Exam: Neck Supple, Trachea Midline Pulmonary Resp Exam: Breath Sounds Equal, Crackles Cardiology CV Exam: Normal Sinus Rhythm Gastrointestinal/Abdomen GI Exam: Non-Tender, Bowel Sounds Present Musculoskeletal MS Exam: Normal Tone Integumentary Skin Exam: Warm, Dry Neurologic Neuro Exam: Alert, Awake, Oriented, Speech Clear, Moving All Extremities, Training Development Manager Equal, No Focal Deficits Psychiatric Psych Exam: Appropriate Responses VTE Prophylaxis VTE Prophylaxis Meds: Heparin Assessment/Plan Assessment/Plan Assessment Pharyngitis throat culture grows timo albican.,...on Diflucan. Leukocytosis.. down trend. Right sided crackles with clear chest x-ray Severe back pain that is chronic but worse than baseline Mild swelling right knee, she had her right knee replaced few weeks ago, sees Dr. Rodriguez Anxiety UTI ..On Antibiotic Levaquin per ID Recommendation. Oral thrush...Nystatin. Hypothyrodism...on Levothyroxine. Hypertension on home medicine Hyperlipidemia..continue home medicine. Management Continue Levaquin 500 milligrams IV daily X-ray right knee,..noted. infectious disease input noted. Pain control Repeated urinalysis Accu-Cheks before meals and at bedtime Sliding scale DVT prophylaxis Discussed with patient Discussed with nurse Discussed Condition with: Patient Richard Holland MD Jan 28, 2017 08:32
[2017-01-28] MEDS: PANTOPRAZOLE SOD 20 MG DELAYED RELEASE TAB PO SCH (09:54)
[2017-01-28] MEDS: NYSTATIN SUSP 500,000 U/5 ML CUP SWISH-SWAL SCH ×4 (09:54→20:04)
[2017-01-28] MEDS: ASPIRIN 325 MG TAB PO SCH (09:54)
[2017-01-28] MEDS: DOCUSATE SODIUM 50 MG/SENNA 8.6 MG TAB PO SCH ×2 (09:54→20:03)
[2017-01-28] MEDS: LOSARTAN 25 MG TAB PO SCH (09:54)
[2017-01-28] MEDS: HEPARIN SODIUM - SQ 10,000 UNITS/ML VIAL SQ SCH ×2 (09:57→20:04)
[2017-01-28 12:00] VITALS: BP_SYST 127; BP_SYST 146; BP_DIAS 82; PULSE 91; RESP 20; TEMP 98.3; O2SAT 94
[2017-01-28] MEDS: LEVOFLOXACIN 500 MG PREMIX INJ 100 ML IV SCH (12:51)
[2017-01-28 16:00] VITALS: BP 133/76; PULSE 60; RESP 20; TEMP 97.3; O2SAT 97
[2017-01-28 20:00] VITALS: BP 148/105; PULSE 63; RESP 20; TEMP 97.2; O2SAT 97
[2017-01-28] MEDS: FLUCONAZOLE 200 MG PREMIX BAG 100 ML IV SCH (20:01)
[2017-01-28] MEDS: ATORVASTATIN 40 MG TAB PO SCH (20:03)
--- NOTE | 2017-01-28 22:41 | HHI.IDPN ---
Subjective Subjective Remarks co subjective fevers, night sweats less abd pain and back pain afebrile x 2 days Antibiotics fluc levaquine Allergies: Coded Allergies: Ants (Verified Allergy, Severe, Anaphylaxis, 01/24/17) Benadryl (Verified Allergy, Severe, Anaphylaxis, 01/24/17) Dextrose (Verified Allergy, Severe, Anaphylaxis, 01/24/17) Iodine (Verified Allergy, Mild, Nausea/Vomiting, 01/24/17) STATES SHE RECENTLY HAD IT AND SHE WAS FINE Penicillin (Verified Allergy, Mild, Hives, 01/24/17) Uncoded Allergies: DIOXILLIN (Allergy, Mild, Hives, 10/01/06) ORAL PAIN MEDS (Allergy, Mild, Hives, 10/01/06) SOME ANITBIOTICS (Allergy, Mild, 10/01/06) Objective . Vital Signs Date Time Temp Pulse Resp B/P Pulse Ox O2 Delivery O2 Flow Rate FiO2 01/28/17 20:00 97.2 63 20 148/105 97 01/28/17 16:00 97.3 60 20 133/76 97 01/28/17 12:00 98.3 91 20 127/82 94 01/28/17 08:00 98.0 69 20 135/88 92 01/28/17 04:00 Room Air 01/28/17 04:00 97.2 62 20 125/76 95 01/28/17 00:00 97.5 67 20 133/84 93 01/28/17 00:00 Room Air 01/27/17 01/27/17 01/28/17 15:00 23:00 07:00 Intake Total 1540 ml 100 ml 0 ml Output Total 650 ml Balance 1540 ml 100 ml -650 ml Intake Oral 1440 ml 0 ml IV Total 100 ml 100 ml Output Urine Total 650 ml # Voids 7 # Bowel Movements 0 1 . Laboratory Tests Test 01/27/17 19:23 Magnesium Level 1.2 MG/DL Microbiology Date/Time Procedure Status Source Growth 01/27/17 01:03 Urine Culture - Final Complete Urine Clean Catch 10-50,000 CFU/ML MIXED REJI... Imaging Last Impressions Abdomen/Pelvis CT 01/27/17 0000 Signed Impressions: Service Date/Time: Friday, January 27, 2017 21:15 - CONCLUSION: Minimal nonspecific findings. Degenerative changes in the lumbar spine. There is no evidence for an abscess. Siva Nice MD FACR Knee X-Ray 01/26/17 0000 Signed Impressions: Service Date/Time: Thursday, January 26, 2017 21:01 - CONCLUSION: Mild anterior soft tissue prominence with no underlying bony abnormalities status post arthroplasty. Honorio Helms MD Chest X-Ray 01/25/17 0000 Signed Impressions: Service Date/Time: Wednesday, January 25, 2017 13:19 - CONCLUSION: Pulmonary vascular congestion with poor inspiratory effort. Frank Hubbard MD Lumbar Spine CT 01/24/17 1613 Signed Impressions: Service Date/Time: Friday, January 24, 2017 16:41 - CONCLUSION: 1. There is moderate spinal canal stenosis at L4-5 and L5-S1. 2. There is mild spinal canal stenosis at L3-4. 3. There are bony degenerative changes involving the lumbar spine with disc degeneration and disc space narrowing at L5-S1. 4. There is bilateral facet arthritis at multiple levels. Riki Potts MD Lumbar Spine MRI 01/24/17 0000 Signed Impressions: Service Date/Time: Tuesday, January 24, 2017 21:46 - CONCLUSION: Extensive motion artifact without significant disc herniation, or discitis. Siva Nice MD FACR Physical Exam GENERAL: This is a well-developed female in no acute distress. She is awake and alert and oriented. HEENT: Head is atraumatic. Extraocular movements appear grossly intact, pupils reactive to light without icterus. Oropharynx no visible lesions. Mucosa is moist. NECK: Supple without adenopathy. LUNGS: Clear breath sounds which are diminished bilaterally. HEART: Regular rate and rhythm without murmurs, rubs or gallops. ABDOMEN: Bowel sounds present, soft, non tender. No masses or hepatosplenomegaly BACK: mild tenderness at palpation of the left lower back. EXTREMITIES: No clubbing or cyanosis or edema. The right knee surgical incision is well-healed. though minimal warmth is appretiated, not tedenr There is no erythema or increased warmth at the right knee and no significant swelling. Distal pulses are intact. SKIN: No rash. LYMPHATICS: no axillae, scervical or supraclavicular edeonaopathy NEUROLOGIC: Awake, alert, non focal; clear speech PSYCHIATRIC: The patient is plaesant calm and cooperative. Assessment & Plan Remarks IMPRESSION 1. Intractable back pain, questionable etiology. The patient is noted to have spinal canal stenosis at L4-L5 and L5-S1. No evidence of discitis. 2. Fever. Abnormal UA, left lower back tenderness. prob pyelo. 3. Abnormal chest x-ray in light of fever and leukocytosis. Possible pulmonary infection. However, the patient does not have much in the way of respiratory symptoms and this may very well just be congestive heart failure. 4. Possible sepsis with fever and leukocytosis. no fever, but improving leukocytoss RECOMMENDATIONS 1. Continue Levaquin. 2. dc Diflucan. 3 . Monitor temperature. 4. Monitor white blood cell count. Carmen Galvez MD Jan 28, 2017 22:41
[2017-01-29] VITALS: BP 145/83; PULSE 66; RESP 20; TEMP 97.5; O2SAT 94
[2017-01-29] MEDS: LEVOTHYROXINE SODIUM 25 MCG TAB PO SCH (05:31)
[2017-01-29] MEDS: INSULIN ASPART SUPPLEMENTAL SCALE SQ SCH ×3 (05:33→21:00)
[2017-01-29] MEDS: GLIMEPIRIDE 4 MG TAB PO SCH ×2 (05:33→14:44)
[2017-01-29 06:45] LABS: AUTOMATED NEUTROPHIL # 2.5 TH/MM3 (1.8-7.7); BASOPHIL # 0.1 TH/MM3 (0-0.2); BASOPHIL % 1.4 % (0.0-2.0); EOSINOPHIL # 0.3 TH/MM3 (0-0.4); EOSINOPHIL % 6.1 % (0.0-4.0); HEMATOCRIT 40.7 % (35.0-46.0); HEMO FLAGS DIFF FINAL; LYMPH % 29.7 % (9.0-44.0); LYMPHOCYTE # 1.4 TH/MM3 (1.0-4.8); MEAN CELL VOLUME 80.2 FL (80.0-100.0); MEAN CORPUSCULAR HEMOGLOBIN 26.1 PG (27.0-34.0); MEAN CORPUSCULAR HGB CONC 32.5 % (32.0-36.0); MONO % 9.7 % (0.0-8.0); NEUT % 53.1 % (16.0-70.0); PLATELET COUNT 235 TH/MM3 (150-450); RED BLOOD COUNT 5.07 MIL/MM3 (4.00-5.30); RED CELL DISTRIBUTION WIDTH 21.5 % (11.6-17.2); WHITE BLOOD COUNT 4.8 TH/MM3 (4.0-11.0)
[2017-01-29 06:46] LABS: CHLORIDE 103 MEQ/L (98-107); POTASSIUM 3.5 MEQ/L (3.5-5.1); SODIUM (NA) 141 MEQ/L (136-145)
[2017-01-29 06:53] LABS: ANION GAP 8 MEQ/L (5-15); BICARBONATE 30.3 MEQ/L (21.0-32.0); BLOOD UREA NITROGEN 7 MG/DL (7-18)
[2017-01-29 06:56] LABS: ALT (GPT) 23 U/L (10-53); AST (GOT) 15 U/L (15-37); GLOMERULAR FILTRATION RATE 94 ML/MIN (>89)
[2017-01-29 06:57] LABS: TOTAL BILIRUBIN ADULT 0.4 MG/DL (0.2-1.0)
[2017-01-29 06:58] LABS: ALKALINE PHOSPHATASE 73 U/L (45-117)
[2017-01-29] MEDS: HYDROmorphone HCL PF 1 MG/ML VIAL IV PRN ×3 (07:04→21:18)
[2017-01-29 08:00] VITALS: BP 147/96; PULSE 92; RESP 19; TEMP 97.8; O2SAT 99
[2017-01-29] MEDS: SODIUM CHLORIDE 0.9% FLUSH 10 ML FLUSH IV FLUSH SCH ×2 (09:00→21:04)
[2017-01-29] MEDS: DOCUSATE SODIUM 50 MG/SENNA 8.6 MG TAB PO SCH ×2 (09:04→21:06)
[2017-01-29] MEDS: LOSARTAN 25 MG TAB PO SCH (09:04)
[2017-01-29] MEDS: PANTOPRAZOLE SOD 20 MG DELAYED RELEASE TAB PO SCH (09:05)
[2017-01-29] MEDS: NYSTATIN SUSP 500,000 U/5 ML CUP SWISH-SWAL SCH ×4 (09:05→21:05)
[2017-01-29] MEDS: HEPARIN SODIUM - SQ 10,000 UNITS/ML VIAL SQ SCH ×2 (09:05→21:06)
[2017-01-29] MEDS: ASPIRIN 325 MG TAB PO SCH (09:05)
[2017-01-29 12:00] VITALS: BP 145/82; PULSE 70; RESP 18; TEMP 97.9; O2SAT 95
[2017-01-29] MEDS: LEVOFLOXACIN 500 MG TAB PO SCH (12:35)
[2017-01-29] MEDS: ACETAMINOPHEN/HYDROcodone 325 MG/7.5 MG TAB PO PRN (14:44)
[2017-01-29 16:00] VITALS: BP 150/100; PULSE 72; RESP 18; TEMP 98.5; O2SAT 95
--- NOTE | 2017-01-29 17:08 | HHI.PR ---
Subjective History of Present Illness Alert, oriented, very anxious, back pain,.. better today.not eating much d/w RN Thu at bed side. Review of Systems Constitutional Constitutional: Fatigue, Weakness Musculoskeletal MS Remarks back pain. Vitals/Results Intake & Output 01/28/17 01/28/17 01/29/17 15:00 23:00 07:00 Intake Total 1030 ml 480 ml Output Total 800 ml Balance 1030 ml -320 ml Intake Oral 1030 ml 480 ml Output Urine Total 800 ml # Voids 2 Vital Signs Vital Signs Date Time Temp Pulse Resp B/P Pulse Ox O2 Delivery O2 Flow Rate FiO2 01/29/17 16:58 20 01/29/17 16:00 98.5 72 18 150/100 95 01/29/17 15:44 20 01/29/17 12:00 97.9 70 18 145/82 95 01/29/17 08:00 97.8 92 19 147/96 99 01/29/17 00:00 97.5 66 20 145/83 94 01/28/17 20:00 97.2 63 20 148/105 97 CBC/BMP: 01/29/17 0535 01/29/17 0535 Lab Results Laboratory Tests Test 01/29/17 05:35 White Blood Count 4.8 TH/MM3 Red Blood Count 5.07 MIL/MM3 Hemoglobin 13.2 GM/DL Hematocrit 40.7 % Mean Corpuscular Volume 80.2 FL Mean Corpuscular Hemoglobin 26.1 PG Mean Corpuscular Hemoglobin 32.5 % Concent Red Cell Distribution Width 21.5 % Platelet Count 235 TH/MM3 Mean Platelet Volume 8.6 FL Neutrophils (%) (Auto) 53.1 % Lymphocytes (%) (Auto) 29.7 % Monocytes (%) (Auto) 9.7 % Eosinophils (%) (Auto) 6.1 % Basophils (%) (Auto) 1.4 % Neutrophils # (Auto) 2.5 TH/MM3 Lymphocytes # (Auto) 1.4 TH/MM3 Monocytes # (Auto) 0.5 TH/MM3 Eosinophils # (Auto) 0.3 TH/MM3 Basophils # (Auto) 0.1 TH/MM3 CBC Comment DIFF FINAL Differential Comment Sodium Level 141 MEQ/L Potassium Level 3.5 MEQ/L Chloride Level 103 MEQ/L Carbon Dioxide Level 30.3 MEQ/L Anion Gap 8 MEQ/L Blood Urea Nitrogen 7 MG/DL Creatinine 0.62 MG/DL Estimat Glomerular Filtration 94 ML/MIN Rate Random Glucose 113 MG/DL Calcium Level 9.0 MG/DL Total Bilirubin 0.4 MG/DL Aspartate Amino Transf 15 U/L (AST/SGOT) Alanine Aminotransferase 23 U/L (ALT/SGPT) Alkaline Phosphatase 73 U/L Total Protein 7.0 GM/DL Albumin 2.9 GM/DL Physical Exam General General Appearance: Well Developed, No Acute Distress, Comfortable, Anxious Eyes Eye Exam: Pupils Reactive, Sclera White, Extraocular Movement Intact Ears & Nose Ears & Nose Exam: Nasal Mucosa [place] Throat Throat Exam: Oral Mucosa [place] & Moist Neck Neck Exam: Neck Supple, Trachea Midline Pulmonary Resp Exam: Breath Sounds Equal, Crackles Cardiology CV Exam: Normal Sinus Rhythm Gastrointestinal/Abdomen GI Exam: Non-Tender, Bowel Sounds Present Musculoskeletal MS Exam: Normal Tone Integumentary Skin Exam: Warm, Dry Neurologic Neuro Exam: Alert, Awake, Oriented, Speech Clear, Moving All Extremities, 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 Leukocytosis.. down trend. Right sided crackles with clear chest x-ray Severe back pain that is chronic but worse than baseline Mild swelling right knee, she had her right knee replaced few weeks ago, sees Dr. Rodriguez Anxiety UTI ..On Antibiotic Levaquin per ID Recommendation. Oral thrush...Nystatin. Hypothyrodism...on Levothyroxine. Hypertension on home medicine Hyperlipidemia..continue home medicine. Management Continue Levaquin 500 milligrams IV daily X-ray right knee,..noted. infectious disease input noted. Pain control Repeated urinalysis Accu-Cheks before meals and at bedtime Sliding scale DVT prophylaxis Discussed with patient Discussed with nurse Discussed Condition with: Patient Richard Holland MD Jan 29, 2017 17:07
[2017-01-29 20:00] VITALS: BP 127/63; PULSE 62; RESP 16; TEMP 97.8; O2SAT 91
[2017-01-29] MEDS: ATORVASTATIN 40 MG TAB PO SCH (21:05)
[2017-01-29 22:09] LABS: BLOOD, URINE NEG (NEG); GLUCOSE,URINE NEG (NEG); KETONE, URINE TRACE mg/dL (NEG); NITRITE,URINE NEG (NEG)
[2017-01-29 22:14] LABS: URINE COLOR YELLOW (YELLW/STRAW)
[2017-01-29 22:15] LABS: MUCUS URINE FEW /lpf (OCC)
[2017-01-29 22:16] LABS: BACTERIA, URINE RARE /hpf; COMMENT (UR) CULTURE INDICATED; CULTURE IF INDICATED CULTURE INDICATED; RBC, URINE 0-3 /hpf (0-3); RENAL EPITHELIAL CELLS 0-5 /hpf; SQUAMOUS EPITHELIAL CELL URINE > 8 /hpf (0-5)
[2017-01-30] VITALS: BP 114/83; PULSE 69; RESP 20; O2SAT 93
[2017-01-30 06:05] LABS: BASOPHIL # 0.1 TH/MM3 (0-0.2); BASOPHIL % 1.2 % (0.0-2.0); EOSINOPHIL # 0.2 TH/MM3 (0-0.4); EOSINOPHIL % 4.2 % (0.0-4.0); HEMO FLAGS DIFF FINAL; LYMPH % 38.8 % (9.0-44.0); LYMPHOCYTE # 1.8 TH/MM3 (1.0-4.8); MEAN CELL VOLUME 79.4 FL (80.0-100.0); MEAN CORPUSCULAR HEMOGLOBIN 26.9 PG (27.0-34.0); MEAN CORPUSCULAR HGB CONC 33.9 % (32.0-36.0); MONO % 8.9 % (0.0-8.0); NEUT % 46.9 % (16.0-70.0); PLATELET COUNT 236 TH/MM3 (150-450); RED BLOOD COUNT 4.79 MIL/MM3 (4.00-5.30); RED CELL DISTRIBUTION WIDTH 21.6 % (11.6-17.2); WHITE BLOOD COUNT 4.5 TH/MM3 (4.0-11.0)
[2017-01-30 06:14] LABS: CHLORIDE 105 MEQ/L (98-107); POTASSIUM 3.5 MEQ/L (3.5-5.1); SODIUM (NA) 142 MEQ/L (136-145)
[2017-01-30 06:20] LABS: ANION GAP 9 MEQ/L (5-15); BICARBONATE 28.5 MEQ/L (21.0-32.0); BLOOD UREA NITROGEN 8 MG/DL (7-18)
[2017-01-30 06:23] LABS: ALT (GPT) 18 U/L (10-53); AST (GOT) 12 U/L (15-37); GLOMERULAR FILTRATION RATE 91 ML/MIN (>89)
[2017-01-30 06:24] LABS: TOTAL BILIRUBIN ADULT 0.2 MG/DL (0.2-1.0)
[2017-01-30 06:26] LABS: ALKALINE PHOSPHATASE 62 U/L (45-117)
[2017-01-30] MEDS: LEVOTHYROXINE SODIUM 25 MCG TAB PO SCH (06:38)
[2017-01-30] MEDS: GLIMEPIRIDE 4 MG TAB PO SCH (06:38)
[2017-01-30] MEDS: INSULIN ASPART SUPPLEMENTAL SCALE SQ SCH ×2 (06:39→11:00)
[2017-01-30] MEDS: HYDROmorphone HCL PF 1 MG/ML VIAL IV PRN (06:53)
[2017-01-30 08:00] VITALS: BP 128/87; PULSE 62; RESP 21; TEMP 97.1; O2SAT 96
--- NOTE | 2017-01-30 08:27 | HHI.PR ---
Subjective History of Present Illness Alert, oriented, very anxious, back pain,.. better today.not eating much d/w RAJWINDER Rojas at bed side. Review of Systems Constitutional Constitutional: Fatigue, Weakness Musculoskeletal MS Remarks back pain. Vitals/Results Intake & Output 01/29/17 01/29/17 01/30/17 15:00 23:00 07:00 Intake Total 200 ml 100 ml 240 ml Balance 200 ml 100 ml 240 ml Intake Oral 100 ml 240 ml IV Total 200 ml # Voids 1 2 # Bowel Movements 1 Vital Signs Vital Signs Date Time Temp Pulse Resp B/P Pulse Ox O2 Delivery O2 Flow Rate FiO2 01/30/17 08:00 97.1 62 21 128/87 96 01/30/17 00:00 69 20 114/83 93 01/29/17 20:00 97.8 62 16 127/63 91 01/29/17 16:58 20 01/29/17 16:00 98.5 72 18 150/100 95 01/29/17 15:44 20 01/29/17 12:00 97.9 70 18 145/82 95 CBC/BMP: 01/30/17 0530 01/30/17 0530 Lab Results Laboratory Tests Test 01/29/17 01/30/17 21:00 05:30 Urine Color YELLOW Urine Turbidity CLEAR Urine pH 8.0 Urine Specific [place] 1.025 Urine Protein TRACE mg/dL Urine Glucose (UA) NEG mg/dL Urine Ketones TRACE mg/dL Urine Occult Blood NEG Urine Nitrite NEG Urine Bilirubin NEG Urine Leukocyte Esterase TRACE Urine RBC 0-3 /hpf Urine WBC 9-14 /hpf Urine Squamous Epithelial > 8 /hpf Cells Urine Renal Epithelial Cells 0-5 /hpf Urine Bacteria RARE /hpf Urine Mucus FEW /lpf Microscopic Urinalysis Comment CULTURE INDICATED White Blood Count 4.5 TH/MM3 Red Blood Count 4.79 MIL/MM3 Hemoglobin 12.9 GM/DL Hematocrit 38.0 % Mean Corpuscular Volume 79.4 FL Mean Corpuscular Hemoglobin 26.9 PG Mean Corpuscular Hemoglobin 33.9 % Concent Red Cell Distribution Width 21.6 % Platelet Count 236 TH/MM3 Mean Platelet Volume 8.1 FL Neutrophils (%) (Auto) 46.9 % Lymphocytes (%) (Auto) 38.8 % Monocytes (%) (Auto) 8.9 % Eosinophils (%) (Auto) 4.2 % Basophils (%) (Auto) 1.2 % Neutrophils # (Auto) 2.0 TH/MM3 Lymphocytes # (Auto) 1.8 TH/MM3 Monocytes # (Auto) 0.4 TH/MM3 Eosinophils # (Auto) 0.2 TH/MM3 Basophils # (Auto) 0.1 TH/MM3 CBC Comment DIFF FINAL Differential Comment Sodium Level 142 MEQ/L Potassium Level 3.5 MEQ/L Chloride Level 105 MEQ/L Carbon Dioxide Level 28.5 MEQ/L Anion Gap 9 MEQ/L Blood Urea Nitrogen 8 MG/DL Creatinine 0.64 MG/DL Estimat Glomerular Filtration 91 ML/MIN Rate Random Glucose 89 MG/DL Calcium Level 9.0 MG/DL Total Bilirubin 0.2 MG/DL Aspartate Amino Transf 12 U/L (AST/SGOT) Alanine Aminotransferase 18 U/L (ALT/SGPT) Alkaline Phosphatase 62 U/L Total Protein 6.5 GM/DL Albumin 2.8 GM/DL Microbiology Microbiology 01/29/17 Urine Culture, Received Pending Physical Exam General General Appearance: Well Developed, No Acute Distress, Comfortable, Anxious Eyes Eye Exam: Pupils Reactive, Sclera White, Extraocular Movement Intact Ears & Nose Ears & Nose Exam: Nasal Mucosa [place] Throat Throat Exam: Oral Mucosa [place] & Moist Neck Neck Exam: Neck Supple, Trachea Midline Pulmonary Resp Exam: Breath Sounds Equal, Crackles Cardiology CV Exam: Normal Sinus Rhythm Gastrointestinal/Abdomen GI Exam: Non-Tender, Bowel Sounds Present Musculoskeletal MS Exam: Normal Tone Integumentary Skin Exam: Warm, Dry Neurologic Neuro Exam: Alert, Awake, Oriented, Speech Clear, Moving All Extremities, Hall Director Equal, No Focal Deficits Psychiatric Psych Exam: Appropriate Responses VTE Prophylaxis VTE Prophylaxis Meds: Heparin Assessment/Plan Assessment/Plan Assessment Pharyngitis throat culture grows timo albican.,...off Diflucan. Leukocytosis.. down trend. Right sided crackles with clear chest x-ray Severe back pain that is chronic but worse than baseline Mild swelling right knee, she had her right knee replaced few weeks ago, sees Dr. Rodriguez Anxiety UTI ..On Antibiotic Levaquin per ID Recommendation. Oral thrush...Nystatin. Hypothyrodism...on Levothyroxine. Hypertension on home medicine Hyperlipidemia..continue home medicine. Management Continue Levaquin 500 milligrams IV daily X-ray right knee,..noted. infectious disease input noted. Pain control Repeated urinalysis Accu-Cheks before meals and at bedtime Sliding scale DVT prophylaxis ok to DC Home today f/u with PCP 1 Week. Discussed Condition with: Patient Richard Holland MD Jan 30, 2017 08:27
--- NOTE | 2017-01-30 08:29 | PQ ---
Physician Query Response Document PATIENT: RANDI DINH : 1940 ADMIT DATE: 01/25/2017 2:24 PM DISCH DATE: RESPONDING PROVIDER #: EAhmed QUERY TEXT: Sepsis Query Based on your medical judgement, can you further clarify the folowiin. Sepsis (SIRS due to an infection) 2. Sepsis with Organ Dysfunction 3. A localized Infection only 4. Another condition - please specify 5. Unable to determine - please explain. Depending on your selection above, please indicate one of the below if applicable: - Sepsis was present on Admission - Sepsis developed after admission The patient's Clinical Indicators include: CHILLS T 101.1 WBC 15.1 THROAT CULTURE CANDIDAL URINE W MIXED REJI CLEAN CATCH Query created by: Romy Monte on 01/28/2017 1:32 PM RESPONSE TEXT: Sepsis due to infection Electronically signed by: Richard Holland MD 01/30/2017 8:24 AM
[2017-01-30] MEDS ORDERED: CYCL1TAB29 PO (08:34)
[2017-01-30] MEDS ORDERED: LEVA500T20 PO (08:34)
[2017-01-30] MEDS ORDERED: HYDR-3533 PO (08:43)
[2017-01-30] MEDS: ASPIRIN 325 MG TAB PO SCH (08:51)
[2017-01-30] MEDS: NYSTATIN SUSP 500,000 U/5 ML CUP SWISH-SWAL SCH ×2 (08:51→12:11)
[2017-01-30] MEDS: SODIUM CHLORIDE 0.9% FLUSH 10 ML FLUSH IV FLUSH SCH (08:52)
[2017-01-30] MEDS: PANTOPRAZOLE SOD 20 MG DELAYED RELEASE TAB PO SCH (08:52)
[2017-01-30] MEDS: HEPARIN SODIUM - SQ 10,000 UNITS/ML VIAL SQ SCH (08:52)
[2017-01-30] MEDS: DOCUSATE SODIUM 50 MG/SENNA 8.6 MG TAB PO SCH (08:52)
[2017-01-30] MEDS: LOSARTAN 25 MG TAB PO SCH (08:52)
[2017-01-30] MEDS: CYCLOBENZAPRINE HCL 10 MG TAB PO PRN (08:59)
[2017-01-30] MEDS: LEVOFLOXACIN 500 MG TAB PO SCH (12:11)
[2017-01-30] MEDS: ACETAMINOPHEN/HYDROcodone 325 MG/7.5 MG TAB PO PRN (12:11)
[2017-01-30 13:35] VITALS: RESP 18
--- NOTE | 2017-02-02 09:25 | MD ---
cc: DALIA CHEN MD ADMISSION DATE: 01/25/2017 DISCHARGE DATE: 01/30/2017 DISPOSITION: Okay to discharge the patient home. CONDITION ON DISCHARGE: Satisfactory. ACTIVITY As tolerated. DIET Cardiac ALLERGIES: DIOXILLIN ANTS BENADRYL IODINE DEXTROSE ORAL PAIN MEDICINE - she can take Lortab and Percocet. PENICILLIN SOME ANTIBIOTICS - does not remember the name. DISCHARGE MEDICATIONS: 1. Flexeril 10 milligrams p.o. q8 hours p.r.n. muscle spasm. 2. Lortab 5/325 q6 hours p.r.n. pain 3. Levaquin 500 milligrams p.o. daily for seven days. 4. Aspirin 325 milligrams p.o. daily 5. Lipitor 40 milligrams p.o. daily 6. Glipizide 4 milligrams twice daily. 7. Levothyroxine 25 micrograms p.o. daily. 8. Jentadueto 2.11/999 twice a day. 9. Losartan 25 milligrams p.o. daily. 10. Omeprazole 20 milligrams p.o. daily. The patient was to follow with PCP 1 week. ADMISSION DIAGNOSIS 1. Pharyngitis. Throat culture grew out Dolores albicans. The patient is status post Diflucan therapy, discontinued by infectious disease. 2. Leukocytosis, improved. 3. Right-sided crackles with clear chest. 4. Severe back pain. 5. Mild swelling of the right knee. 6. Anxiety. 7. Urinary tract infection, improved on repeat urinalysis. 8. Oral thrush on statin. 9. Hypothyroidism. 10. Hypertension. 11. Hyperlipidemia. HOSPITAL COURSE: This is a 76 year-old female, admitted with the above diagnosis. Infectious disease seen the patient during the hospital stay, Dr. Carmen Galvez seen the patient and Dr. Dave Anne saw the patient. The patient remained stable. No acute event happened. The patient discharged in a satisfactory condition. Further details in the medical record. Dalia Chen MD EA/RHODA /12:33 PM /8:40 AM
== END 2017-01-30 13:46 | disposition home or self-care (01) | DRG 872 ==
LOC: PHED 15:12 → PHEDA 18:22 → PH3B 20:19 → OBSVTOIN 01-25 14:24
PROVIDERS: ADMIT Family Medicine; ATTEND Family Medicine
DX: A41.9 Sepsis, unspecified organism (principal); B37.0 Candidal stomatitis; N39.0 Urinary tract infection, site not specified; I48.91 Unspecified atrial fibrillation; Z79.82 Long term (current) use of aspirin; J02.8 Acute pharyngitis due to other specified organisms; I10 Essential (primary) hypertension; F41.9 Anxiety disorder, unspecified; E03.9 Hypothyroidism, unspecified; E78.5 Hyperlipidemia, unspecified; Z96.651 Presence of right artificial knee joint; M48.07 Spinal stenosis, lumbosacral region; E11.9 Type 2 diabetes mellitus without complications; Z79.84 Long term (current) use of oral hypoglycemic drugs; F32.9 Major depressive disorder, single episode, unspecified; M79.7 Fibromyalgia; I25.10 Atherosclerotic heart disease of native coronary artery without angina pectoris; K21.9 Gastro-esophageal reflux disease without esophagitis; Z87.11 Personal history of peptic ulcer disease
CPT/HCPCS: 71010; 71020; 72131; 72158; 73560; 74176; 80048; 80053; 81001; 82948; 83605; 83735; 85007; 85025; 85027; 85652; 86140; 87040; 87070; 87077; 87081; 87086; 87186; 87804; 87880; 96361; 96374; 96375; 96376; A9579; G0378; J1170; J1450; J1644; J1815; J1956; J2060; J2270; J2405; J7030; Q9963

== ENCOUNTER → 2017-06-24 | Day surgery (SDC) | payer MEDICARE, OTHER ==
[~2017-06-24] VITALS: Ht 167.6 cm; Wt 68.0 kg
[~2017-06-24] MED LIST changes: -AMBI10TA PO; +ASPI-183 PO; -ASPI325T PO; +CHLORHEXIDINE GLUCONATE 2 % 1 PACK (2 CLOTHS) TOPICAL PRN; -COMMODE 3-IN-11 MIS; -CPMMACHINE; +CYCL10TA PO; -CYCL1TAB29 PO; -DILT60TA PO; -ENOX40P SQ; +FAMOTIDINE 20 MG/2 ML VIAL ONE; -HYDR-3366 PO; +HYDR-3533 PO; +IBUP200C PO; +LACTATED RINGER'S 1000 ML IV PRN; +LEVA500T33 PO; +LEVOFLOXACIN 500 MG PREMIX INJ 100 ML IV ONE; +LOSA25TA PO; +METOPROLOL TARTRATE 25 MG TAB PO PRN; -NEXI40CA PO; +OMEP20TA93 PO; +OXYMETAZOLINE HCL 0.05% 15 ML NASAL SPRAY ONE; -POTA10CA PO; -PRED5TAB PO; -PROP150T PO; +SODIUM CHLOR 0.9% 1000 ML INJ 1,000 ML ONE; +SODIUM CHLORID 0.9% 500 ML IV PRN; -SPIR25TA PO; -WALKER WHEELS/F1 MIS
[2017-06-24 11:00] VITALS: BP 125/66; PULSE 60; RESP 16; TEMP 97.7; O2SAT 97
--- NOTE | 2017-06-24 11:23 | MP ---
cc: DENNYS TINAJERO M.D. DATE OF SURGERY 06/24/[address] Dennys tinajero PREOPERATIVE DIAGNOSIS Lesion left anterior true vocal cord. POSTOPERATIVE DIAGNOSIS Lesion left anterior true vocal cord. OPERATION PERFORMED Microlaryngoscopy with excision of left true vocal cord lesion. INDICATIONS Documented in the history and physical. DESCRIPTION OF OPERATION The patient was taken to OR #2 and placed in the supine position. Following induction of general anesthesia and intubation, a shoulder roll and a Blayne head drape were put in place using the Jako laryngoscope. The hypopharynx and larynx were brought into view. The lesion of the anterior cord was immediately identified. Photographs were obtained of the lesion. It was biopsied on two sides which were passed off the field for histological examination. It appeared to be a hemorrhagic cyst. The remnant of the lesion and the cord was then vaporized using the microlaryngeal plasma wand. Additional photographs were taken of the surgical site following completion. The scope was then removed and the procedure was terminated. The patient was reversed from anesthesia and taken to recovery in good condition. There were no complications. Blood loss was less 1 mL. MD DAVIDA Allison/COY /8:11 AM /11:06 AM
--- NOTE | 2017-06-24 14:34 | EKG ---
Date Performed: 06/24/2017 Time Performed: 07:12:56 PTAGE: 77 years EKG: Sinus rhythm WITH SINUS ARRHYTHMIA NORMAL ECG Compared to prior tracing no significant change PREVIOUS TRACING : 01/31/2015 23.22 DOCTOR: Juli Vance Interpretating Date/Time 06/24/2017 14:28:53
== END | disposition home or self-care (01) ==
LOC: PHSDC 06:10
PROVIDERS: ATTEND Otolaryngology
DX: J38.2 Nodules of vocal cords (principal); R49.0 Dysphonia; E11.9 Type 2 diabetes mellitus without complications; I25.10 Atherosclerotic heart disease of native coronary artery without angina pectoris; Z01.810 Encounter for preprocedural cardiovascular examination
CPT/HCPCS: 00320; 31541; 82948; 88305; 93005; J1956; J7030; J7120